=== PATIENT | female | born 1995 | race Caucasian/White ===

== ENCOUNTER → 2017-11-08 12:14 | Outpatient (CLI) | payer OTHER, SELFPAY ==
[2017-11-08 16:09] LABS: hCG Titer Quant., Serum < 1 mIU/mL (<9 non-preg)
== END ==
PROVIDERS: Family Provider Family Medicine; PCP Family Medicine; Visit Provider Obstetrics & Gynecology
DX: N92.5 Other specified irregular menstruation (principal)
CPT/HCPCS: 36415; 84702

== ENCOUNTER → 2017-12-19 07:43 | Outpatient (CLI) | payer OTHER, SELFPAY | PROVIDERS: Family Provider Family Medicine; PCP Family Medicine; Visit Provider Obstetrics & Gynecology | DX: Z53.9 Procedure and treatment not carried out, unspecified reason (principal) ==

== ENCOUNTER → 2017-12-20 09:55 | Outpatient (CLI) | payer OTHER, SELFPAY ==
[2017-12-20 12:38] LABS: Hematocrit 41.2 % (37-47); Hemoglobin 13.6 g/dl (12.0-15.0); Mean Corpuscular Hgb 29.1 pg (27.0-32.0); Mean Corpuscular Volume 88.2 fL (81-99); Mean Platelet Vol. 10.2 fl (6.2-12.0); Platelet Count 313 K/mm3 (150-450); RBC Distribution Width CV 13.4 % (11.6-14.6); Red Blood Count 4.67 M/mm3 (4.2-5.4); White Blood Count 8.3 K/mm3 (4.4-11.0)
[2017-12-20 12:40] LABS: Scan Indicated on CBC? Y/N NO
[2017-12-20 13:13] LABS: Hemoglobin A1c 5.2 % (4.2-6.3)
[2017-12-20 13:17] LABS: ALB/GLOB Ratio 0.9 RATIO (0.9-2.4); AST(SGOT) 26 U/L (15-37); Alanine Aminotransfer ALT/SGPT 33 U/L (13-56); Albumin, Serum 3.8 g/dL (3.2-5.0); Alkaline Phosphatase 101 U/L (45-117); Anion Gap 9 (5-15); BUN 9 mg/dL (7-18); BUN/Creat Ratio 10.7 RATIO (10-20); Chloride 103 mmol/L (98-107); Creatinine, Serum 0.84 mg/dL (0.55-1.02); EST Glomerular Filtration Rate 90 mL/min (>60); Est Glom Filt Rate - Afr Amer 109 mL/min (>60); Follicle Stimulating Hormone 6.1 mIU/mL; Free T3 3.5 pg/mL (2.18-3.98); Globulin 4.3 g/dL (2.2-4.2); Glucose 81 mg/dL (74-106); Potassium 4.1 mmol/L (3.5-5.1); Protein, Total 8.1 g/dL (6.4-8.2); Sodium Level 138 mmol/L (136-145); T4 Free Direct 1.02 ng/dL (0.76-1.46); Thyroid Stim Hormone (TSH) 1.86 uIU/mL (0.358-3.74)
[2017-12-21 06:08] LABS: DHEA Sulfate 155.9 ug/dL (110.0-431.7)
[2017-12-21 08:50] LABS: Progesterone Level 0.38 ng/mL (See Comment); Vitamin D,25 Hydroxy 43.4 ng/mL (29.95-100.01)
[2017-12-21 09:03] LABS: Cholesterol 159 mg/dL (200); High Density Lipoprotein 49 mg/dL; Triglycerides 142 mg/dL; Very Low Density Lipoprotein 28 mg/dL (5-40)
[2017-12-21 11:28] LABS: Sex Hormone-binding Globulin 105.7 nmol/L (24.6-122.0)
[2017-12-21 13:44] LABS: GGTP 22 U/L (5-55)
[2017-12-23 17:35] LABS: 17-Hydroxyprogesterone 36 ng/dL (.)
== END ==
PROVIDERS: Visit Provider Obstetrics & Gynecology
DX: N92.6 Irregular menstruation, unspecified (principal); R63.5 Abnormal weight gain
CPT/HCPCS: 36415; 80053; 80061; 82306; 82533; 82627; 82670; 82977; 83001; 83036; 83498; 84144; 84146; 84270; 84403; 84439; 84443; 84481; 85027; 82626

== ENCOUNTER → 2018-04-26 09:24 | Outpatient (CLI) | payer OTHER, SELFPAY ==
--- NOTE | 2018-04-26 | LES_PTH ---
PATIENT: MARIALUISA GREWAL LOC: [facility] U#:[id number] AGE/SX: 30/F ROOM: RE04/26/[address]: Dr. Gege Fallon MD : 1995 BED: DIS: SPEC #: [id number] RECD: 04/26/18 13:14 STATUS: SLOAN ARUNA #: [id number] RONAL: 04/26/18 00:[address]: Gege Fallon DEPT: SURGICAL PATHOLOGY RECD BY: Spenser Martinez ENTERED: 04/26/18 13:14 SP TYPE: Lesion OTHR DR: Dr. Robbin Perez, DO Tissues: Skin of arm Procedures: Surgery Specimen Level IV HEADER OPERATION: Punch biopsy PRE-OP DIAGNOSIS: Suspicious mole D22.9 TISSUE SUBMITTED: Left upper arm biopsy MICROSCOPIC DIAGNOSIS Left upper arm, biopsy: Compound dysplastic nevus, completely excised in the planes of sections examined. SJ:lizett 04/27/18 COMMENT Immunohistochemistry ([id number]) supports the above diagnosis. 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 Case has been reviewed in consultation with Dr. Conde who concurs with the above diagnosis. IDC:AM MICROSCOPIC DESCRIPTION Slides are reviewed. GROSS DESCRIPTION Received in fixative is one container labeled with the patient's name and designated left upper arm. The specimen consists of a round piece of pickett-white skin measuring 0.5 x 0.5 cm and up to 0.3 cm in thickness. The specimen is inked and submitted entirely in one cassette. It will be bisected at the time of embedding. / KYRA:lizett 04/26/18 TC:1 CPT: 02751
--- NOTE | 2018-04-26 | IMM_PTH ---
PATIENT: MARIALUISA GREWAL LOC: [facility] U#:[id number] AGE/SX: 30/F ROOM: RE04/26/[address]: Dr. Gege Fallon MD : 1995 BED: DIS: SPEC #: [id number] RECD: 04/27/18 12:21 STATUS: SLOAN REToya #: [id number] RONAL: 04/26/18 00:[address]: Gege Fallon DEPT: IMMUNOHISTOCHEMISTRY RECD BY: Anna Fortune ENTERED: 04/27/18 12:23 SP TYPE: IMMUNO OTHR DR: Dr. Robbin Perez DO Tissues: Skin of arm Procedures: [place]-1 (initial) CK5-6 (add) P40 (add) S-100 (add) PHYSICIAN & INSTITUTION [place] [phone] SPECIMEN INFORMATION: Tissue Source: Left upper arm punch biopsy Clinical Info: Suspicious mole Specimen Number: [id number] CPT code: 85955, 69304 x3 METHODOLOGY: Deparaffinized sections of prefer/formalin-fixed tissue or PAP/DQ stained slides are incubated with monoclonal/polyclonal antibodies/oligonucleotide probes. Localization is made via biotin free immunoperoxidase method. Appropriate controls are performed and reacted as expected. Results on target cell population are indicated in the following table: RESULTS: ANTIBODY / CLONE RESULT S-100 (4C4.9) positive MART-1 (A-103) positive CK5-6 (D5 & 1684) negative P40 (BC28) negative These tests were developed and their performance characteristics determined by [facility]. They may not have been cleared or approved by the U.S. Food and Drug Administration. The FDA has determined that such clearance or approval is not necessary. INTERPRETATION: Left upper arm, punch biopsy: Compound dysplastic nevus. SJ:lizett 04/27/18 Case has been reviewed in consultation with Dr. Conde who concurs with the above diagnosis. IDC:CANDI
== END ==
PROVIDERS: Family Provider Family Medicine; PCP Family Medicine; Visit Provider Family Medicine
DX: D22.62 Melanocytic nevi of left upper limb, including shoulder (principal)
CPT/HCPCS: 88305; 88341; 88342

== ENCOUNTER → 2018-07-19 07:58 | Outpatient (CLI) | payer OTHER, SELFPAY ==
[2018-07-19 12:40] LABS: T4 Free Direct 0.89 ng/dL (0.76-1.46); Thyroid Stim Hormone (TSH) 2.38 uIU/mL (0.358-3.74)
== END ==
PROVIDERS: Family Provider Family Medicine; PCP Family Medicine; Visit Provider Family Medicine
DX: E04.1 Nontoxic single thyroid nodule (principal)
CPT/HCPCS: 36415; 84439; 84443

== ENCOUNTER → 2018-07-24 14:06 | Outpatient (CLI) | payer OTHER, SELFPAY ==
--- NOTE | 2018-07-24 14:09 | US_ITS ---
STUDY: THYROID ULTRASOUND REASON FOR EXAM: Female, 23 years old. Left thyroid nodule. TECHNIQUE: Ultrasound evaluation of the thyroid was performed with real-time and static carmona-scale imaging. COMPARISON: None. FINDINGS: RIGHT LOBE: The right lobe of the thyroid gland measures 3.9 x 1.5 x 1.4 cm. There is a homogeneous echotexture. In the mid thyroid there is a 0.2 cm hypoechoic/anechoic focus there is no through transmission suggestive cystic nature, however, this may be secondary to the small size of the lesion. LEFT LOBE: The left lobe of the thyroid gland measures 4.1 x 1.7 x 1.4 cm. There is a homogeneous echotexture. In the mid thyroid there is a 0.6 x 0.3 x 0.4 cm cyst with a central echogenic focus. ISTHMUS: The isthmus measures 0.3 cm. The regional lymph nodes are normal. US/Thyroid IMPRESSION: Small bilateral thyroid nodules. The characteristics score and ACR TI -RADS classification of TR2, not suspicious. Electronically Signed: Kash Burton DO at 16:02 EST Tel [phone], Service support ,
== END ==
PROVIDERS: Family Provider Family Medicine; PCP Family Medicine; Referring Provider Family Medicine; Visit Provider Family Medicine
DX: N04.1 Nephrotic syndrome with focal and segmental glomerular lesions (principal)
CPT/HCPCS: 76536

== ENCOUNTER → 2018-07-25 12:38 | Outpatient (CLI) | payer OTHER, SELFPAY ==
[2018-07-25 13:50] LABS: hCG Titer Quant., Serum 144 mIU/mL (<9 non-preg)
[2018-07-27 12:22] LABS: hCG Titer Quant., Serum 296 mIU/mL (<9 non-preg)
--- OUTSIDE RECORDS SUMMARY | 2018-09-10 15:13 | XMS RPT_ITS ---
:1995 Author Organization OHIP Support Name Relationship Address Phone [facility] Unavailable [address] + [place] [address] ASHVINDAX/THOMAS,RIK Unavailable [address] + [place] [address] SHADBURN, DAX Unavailable Unavailable + [place] [address] [facility] Unavailable [address] + [place] [address] ASHVIN DAX/THOMAS,RIK Unavailable [address] + [place] [address] SHADBURN, DAX Unavailable Unavailable + [place] [address] [facility] Unavailable [address] + [place] [address] ASHVIN DAX/THOMAS,RIK Unavailable [address] + [place] [address] SHADBURN, DAX Unavailable Unavailable + [place] [address] [facility] Unavailable [address] + [place] [address] ASHVIN, DAX/THOMAS,RIK Unavailable [address] + [place] [address] SHADBURN, DAX Unavailable Unavailable + [place] [address] [facility] Unavailable [address] + [place] [address] ASHVIN DAX/THOMAS,RIK Unavailable [address] + [place] [address] SHADBURN, DAX Unavailable 0 + [place] [address] [facility] Unavailable [address] + [place] [address] DAX LOCK/LEROY THOMASON Unavailable [address] + [place] [address] BRANDANDBMICHAEL, DAX Unavailable 0 + [place] [address] [facility] Unavailable [address] + [place] [address] DAX LOCK/THOMAS,RIK Unavailable [address] + [place] [address] BRANDANDBMICHAEL, DAX Unavailable 0 + [place] [address] [facility] Unavailable [address] + [place] [address] DAX LOCK/THOMAS,RIK Unavailable [address] + [place] [address] BRANDANDBMICHAEL, DAX Unavailable 0 + [place] [address] [facility] Unavailable [address] + [place] [address] DAX LOCK/THOMAS,RIK Unavailable [address] + [place] [address] GAGE, DAX Unavailable 0 + [place] [address] Care Team Providers Name Role Phone Maricruz Posada Attending Unavailable Robbin Perez Attending Unavailable Robbin Perez Primary Care Unavailable Robbin Perez Attending Unavailable Robbin Perez Referring Unavailable Robbin Perez Primary Care Unavailable Gege Fallon Attending Unavailable Robbin Perez Primary Care Unavailable Maricruz Posada Attending Unavailable Jazmin Peace Attending Unavailable Robbin Perez Primary Care Unavailable Maricruz Posada Attending Unavailable Maricruz Posada Attending Unavailable Maricruz Posada Referring Unavailable Maricruz Posada Attending Unavailable Robbin Perez Primary Care Unavailable PROBLEMS PROBLEMS DATE TYPE CONDITION / CODE ATTENDING STATUS SOURCE 08/21/2018 Unknown Z12.4 - Encounter Albino Active [place] for screening for [facility] malignant neoplasm Hospital of cervix / Repository Z12.4(ICD-10) 08/21/2018 Unknown Z11.3 - Encounter Albino Active [place] for screening for [facility] infections with a Hospital predominantly Repository sexual mode of transmission / Z11.3(ICD-10) 07/27/2018 Unknown Z34.81 - Encounter Albino Active [place] for supervision of [facility] other normal Hospital , first Repository trimester / Z34.81(ICD-10) 07/19/2018 Unknown 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 / Hospital E04.1(ICD-10) Repository 11/08/2017 Unknown N92.5 - Other Jazmin Peace Active [place] specified irregular [facility] menstruation / Hospital N92.5(ICD-10) Repository PROCEDURES PROCEDURES No Procedure Records FoundRESULTS RESULTS CT/NG W[facility] BY PCR Collected: 08/21/2018 Status: F Source: [place] 1:30 PM [facility] REPOSITORY TYPE CODE TESTS RESULT OUT OF RANGE REFERENCE UNITS LAB L8200.2100 Negative Normal Chlam Negative Trac PCR LAB L8200.2200 Negative Normal NG by Negative PCR Performed By: #### L8200.2000 #### [facility] [address] [place], [address] PAP I-G W/RFX Collected: 08/21/2018 Status: F Source: [place] HRHPV-APTIMA 1:30 PM [facility] REPOSITORY Order Comment: CYTOLOGY INFORMATION: - CLINICAL INFORMATION: - DATE LMP/MENOPAUSE: 06/26/18 LMP - COLLECTION VIAL: Thin Prep Vial - PROFESSIONAL SERVICES CONSULTANT SOURCE: CERVICAL/ENDOCERVICAL - COLLECTION TECHNIQUE: BRUSH/SPATULA Specimen Comment: [id number] Specimen Comment: Source.............Endocervix Specimen Comment: LMP / Prev Treat...PMX=[id number] Specimen Comment: No. of containers..01 ThinPrep Vial TYPE CODE TESTS RESULT OUT OF RANGE REFERENCE UNITS LAB L7400.0800 . Normal DIAGN Comment Result Comment: NEGATIVE FOR INTRAEPITHELIAL LESION AND MALIGNANCY. PREDOMINANCE OF COCCOBACILLI CONSISTENT WITH SHIFT IN VAGINAL LAUREL IS PRESENT. LAB L7400.0900 . Normal ADEQ Comment Result Comment: Satisfactory for evaluation. Endocervical and/or squamous metaplastic cells (endocervical component) are present. LAB L7400.1400 . Normal PERFORM Comment Result Comment: Faith Talbert, Pad Extractor Tender (ASCP) LAB L7400.2575 . Normal TEST METHOD Comment Result Comment: This liquid based ThinPrep(R) pap test was screened with the use of an image guided system. LAB L7400.2600 . Normal . COMM LAB L7400.2700 . Normal PAPSMR Comment Result Comment: The Pap smear is a screening test designed to aid in the detection of premalignant and malignant conditions of the uterine cervix. It is not a diagnostic procedure and should not be used as the sole means of detecting cervical cancer. Both false-positive and false-negative reports do occur. LAB L7400.2800 . Normal HPV RFLX Comment Result Comment: The HPV DNA reflex criteria were not met with this specimen result therefore, no HPV testing was performed. Performed at: [facility] [address] [id number] Chainstitch Felled Seam Operator: Radha Knowles MD, Phone: [phone] Performed By: #### L7400.0353 #### [facility] (refer to report for specific site) refer to report for address and phone number HCG TITER QUANT., Collected: 07/29/2018 Status: F Source: [place] SERUM 10:44 AM [facility] REPOSITORY TYPE CODE TESTS RESULT OUT OF RANGE REFERENCE UNITS LAB L700.8000 <9 non-preg mIU/mL High HCG 632 QUANT. Performed By: #### L700.8000 #### [facility] [address] [place], [place], [id number] HCG TITER QUANT., Collected: 07/27/2018 Status: F Source: [place] SERUM 9:14 AM [facility] REPOSITORY TYPE CODE TESTS RESULT OUT OF RANGE REFERENCE UNITS LAB L700.8000 <9 non-preg mIU/mL High HCG 296 QUANT. Performed By: #### L700.8000 #### [facility] [address] [place], [place], [id number] HCG TITER QUANT., Collected: 07/25/2018 Status: F Source: [place] SERUM 12:39 PM [facility] REPOSITORY TYPE CODE TESTS RESULT OUT OF RANGE REFERENCE UNITS LAB L700.8000 <9 non-preg mIU/mL High HCG 144 QUANT. Performed By: #### L700.8000 #### [facility] [address] [place], [address] THYROID Observed: 07/24/2018 Status: F Source: [place] 2:09 PM [facility] REPOSITORY [facility] Imaging Services [address] [place] [address] Thyroid MR#: [id number] Acct: [id number] Name: SANGEETHA THOMAS Rep #: [id number] : 1995 F 23 From: Kash Burton DO PCP: Robbin Perez DO Status: REG CLI Study: Thyroid Date of Exam: 07/24/18 Exam# [id number] Ordering Dr: Robbin Perez DO STUDY: THYROID ULTRASOUND REASON FOR EXAM: Female, 23 years old. Left thyroid nodule. TECHNIQUE: Ultrasound evaluation of the thyroid was performed with real-time and static thomas-scale imaging. COMPARISON: None. FINDINGS: RIGHT LOBE: The right lobe of the thyroid gland measures 3.9 x 1.5 x 1.4 cm. There is a homogeneous echotexture. In the mid thyroid there is a 0.2 cm hypoechoic/anechoic focus there is no through transmission suggestive cystic nature, however, this may be secondary to the small size of the lesion. LEFT LOBE: The left lobe of the thyroid gland measures 4.1 x 1.7 x 1.4 cm. There is a homogeneous echotexture. In the mid thyroid there is a 0.6 x 0.3 x 0.4 cm cyst with a central echogenic focus. ISTHMUS: The isthmus measures 0.3 cm. The regional lymph nodes are normal. US/Thyroid IMPRESSION: Small bilateral thyroid nodules. The characteristics score and ACR TI -RADS classification of TR2, not suspicious. 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 [place], [place], [address] T4 FREE DIRECT Collected: 07/19/2018 Status: F Source: [place] 8:03 AM [facility] REPOSITORY TYPE CODE TESTS RESULT OUT OF RANGE REFERENCE UNITS LAB L506.0400 0.76-1.46 ng/dL Normal T4 FREE 0.89 DIRECT Performed By: #### L501.9520, L506.0400 #### [facility] [address] [place], [address] LESION (CHOOSE SITE) Observed: 04/26/2018 Status: F Source: [place] 12:00 AM [facility] REPOSITORY Patient: SANGEETHA THOMAS : 1995 () Acct Num: [id number] Phys: Gege Fallon MD Unit Num: [id number] Loc: [facility] Specimen: [id number] Received: 04/26/181313 Spec Type: Lesion TISSUES TISSUES: Skin of arm COMMENT Immunohistochemistry ([id number]) supports the above diagnosis. 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 Case has been reviewed in consultation with Dr. Conde who concurs with the above diagnosis. IDC:AM GROSS DESCRIPTION Received in fixative is one container labeled with the patient's name and designated left upper arm. The specimen consists of a round piece of pickett- white skin measuring 0.5 x 0.5 cm and up to 0.3 cm in thickness. The specimen is inked and submitted entirely in one cassette. It will be bisected at the time of embedding. / KYRA:lizett 04/26/18 TC:1 CPT: 11898 HEADER OPERATION: Punch biopsy PRE-OP DIAGNOSIS: Suspicious mole D22.9 TISSUE SUBMITTED: Left upper arm biopsy MICROSCOPIC DESCRIPTION Slides are reviewed. MICROSCOPIC DIAGNOSIS Left upper arm, biopsy: Compound dysplastic nevus, completely excised in the planes of sections examined. SJ:lizett 04/27/18 Signed Oli Umaña 04/28/18 <signature on file> Performed By: #### PLES #### [facility] [address] [place], [address] IMMUNOHISTOCHEMISTRY Observed: 04/26/2018 Status: F Source: [place] 12:00 AM [facility] REPOSITORY Patient: SANGEETHA THOMAS : 1995 (/) Acct Num: [id number] Phys: Gege Fallon MD Unit Num: [id number] Loc: [facility] Specimen: [id number] Received: 04/27/18 - 1221 Spec Type: IMMUNO TISSUES TISSUES: Skin of arm SPECIMEN INFORMATION: Tissue Source: Left upper arm punch biopsy Clinical Info: Suspicious mole Specimen Number: [id number] CPT code: 09584, 75277 x3 METHODOLOGY: Deparaffinized sections of prefer/formalin-fixed tissue or PAP/DQ stained slides are incubated with monoclonal/polyclonal antibodies/oligonucleotide probes. Localization is made via biotin free immunoperoxidase method. Appropriate controls are performed and reacted as expected. Results on target cell population are indicated in the following table: RESULTS: ANTIBODY / CLONE RESULT S-100 (4C4.9) positive MART-1 (A-103) positive CK5-6 (D5 AND 1684) negative P40 (BC28) negative These tests were developed and their performance characteristics determined by [facility]. They may not have been cleared or approved by the U.S. Food and Drug Administration. The FDA has determined that such clearance or approval is not necessary. INTERPRETATION: Left upper arm, punch biopsy: Compound dysplastic nevus. SJ:lizett 04/27/18 Case has been reviewed in consultation with Dr. Conde who concurs with the above diagnosis. IDC:AM [facility]YS[facility] INSTIT[facility] [address] [address] Signed Oli Davisin 04/28/18 <signature on file> Performed By: #### PIMM #### [facility] [address] [place] [address]. [place], [place], [address] CBC-COMPLETE BLOOD CNT Collected: 12/20/2017 Status: F Source: [place] NO DIFF 9:56 [facility] REPOSITORY TYPE CODE TESTS RESULT OUT OF RANGE REFERENCE UNITS LAB L100.1000 4.4-11.0 K/mm3 Normal WBC 8.3 LAB L100.1200 4.2-5.4 M/mm3 Normal RBC 4.67 LAB L100.1300 12.0-15.0 g/dl Normal HGB 13.6 LAB L100.1400 37-47 % Normal HCT 41.2 LAB L100.1500 81-99 fL Normal MCV 88.2 LAB L100.1600 27.0-32.0 pg Normal MCH 29.1 LAB L100.1700 32-36 g/gl Normal MCHC 33.0 LAB L100.1810 11.6-14.6 % Normal RDW CV 13.4 LAB L100.1820 35.1-43.9 fl Normal RDW SD 43.0 LAB L100.1900 150-450 K/mm3 Normal PLT 313 LAB L100.2000 6.2-12.0 fl Normal MPV 10.2 Performed By: #### L100.0500 #### [facility] [address] [place], [place] [address]. [place], [place], [address] HEMOGLOBIN A1C Collected: 12/20/2017 Status: F Source: [place] 9:56 [facility] REPOSITORY TYPE CODE TESTS RESULT OUT OF RANGE REFERENCE UNITS LAB L501.9985 4.2-6.3 % Normal HGB A1C 5.2 Performed By: #### L501.9985 #### [facility] [address] [place], [place], [address] COMPREHENSIVE METABOLIC Collected: 12/20/2017 Status: F Source: [place] MARCUS 9:56 AM [facility] REPOSITORY Order Comment: PLEASE ADD GGT TO BLOOD FROM 12/20/17. RACK TG2 6 M, TG3 5 N, TG3 6 G, WG3 1 B. SPECIMEN WAS SPUN WITH IN 20 MINUTES OF DRAW. CSTROCK PLEASE ADD LIPID TO BLOOD FROM 12-20-17 TYPE CODE TESTS RESULT OUT OF RANGE REFERENCE UNITS LAB L501.0100 74-106 mg/dL Normal GLU 81 Result Comment: Please note revised GLUCOSE reference range effective 2017. LAB L501.1000 7-18 mg/dL Normal BUN 9 LAB L501.1100 0.55-1.02 mg/dL Normal CREAT,SERUM 0.84 Result Comment: The validity of the calculated GFR AND GFRAA in patients over 70 years has not been determined. Clinical correlation is essential. LAB L501.1110 >60 mL/min Normal EST GFR 90 Result Comment: Non- GFR Calc LAB L501.1115 >60 mL/min Normal EST GFR - AA 109 Result Comment: GFR Calc LAB L501.1300 10-20 RATIO Normal BUN/CRE 10.7 LAB L501.1500 6.4-8.2 g/dL T Normal PROT 8.1 LAB L501.1800 3.2-5.0 g/dL Normal ALB 3.8 LAB L501.1950 2.2-4.2 g/dL High GLOB 4.3 LAB L501.2000 0.9-2.4 RATIO Normal A/G 0.9 LAB L501.2200 8.5-10.1 mg/dL CA Normal 9.0 LAB L501.4100 15-37 U/L Normal AST 26 LAB L501.4305 45-117 U/L Normal ALK P 101 LAB L501.4405 13-56 U/L Normal ALT 33 LAB L501.4600 0.20-1.00 mg/dL T Normal BILI 0.50 LAB L501.5300 136-145 mmol/L NA Normal 138 LAB L501.5600 3.5-5.1 mmol/L K Normal 4.1 LAB L501.5900 98-107 mmol/L CL Normal 103 LAB L501.6100 21.0-32.0 mmol/L Normal CO2 26.0 LAB L501.6200 5-15 Normal GAP 9 Performed By: #### L500.4050, L501.51943, L501.9520, L506.0400, L3100.5125, L3100.5420, L3300.1750, L500.4100, L501.5100 #### [facility] [address] [place], [place], [address] FREE T3 Collected: 12/20/2017 Status: F Source: [place] 9:56 AM [facility] REPOSITORY Order Comment: PLEASE ADD GGT TO BLOOD FROM 12/20/17. RACK TG2 6 M, TG3 5 N, TG3 6 G, WG3 1 B. SPECIMEN WAS SPUN WITH IN 20 MINUTES OF DRAW. CSTROCK PLEASE ADD LIPID TO BLOOD FROM 12-20-17 TYPE CODE TESTS RESULT OUT OF RANGE REFERENCE UNITS LAB L501.64448 2.18-3.98 pg/mL Normal FREE T3 3.5 Performed By: #### L500.4050, L501.56617, L501.9520, L506.0400, L3100.5125, L3100.5420, L3300.1750, L500.4100, L501.5100 #### [facility] [address] [place], [place], [address] THYROID STIM HORMONE Collected: 12/20/2017 Status: F Source: [place] (TSH) 9:56 AM [facility] REPOSITORY Order Comment: PLEASE ADD GGT TO BLOOD FROM 12/20/17. RACK TG2 6 M, TG3 5 N, TG3 6 G, WG3 1 B. SPECIMEN WAS SPUN WITH IN 20 MINUTES OF DRAW. CSTROCK PLEASE ADD LIPID TO BLOOD FROM 12-20-17 TYPE CODE TESTS RESULT OUT OF RANGE REFERENCE UNITS LAB L501.9520 0.358-3.74 uIU/mL Normal TSH 1.86 Performed By: #### L500.4050, L501.48859, L501.9520, L506.0400, L3100.5125, L3100.5420, L3300.1750, L500.4100, L501.5100 #### [facility] [address] [place], [address] T4 FREE DIRECT Collected: 12/20/2017 Status: F Source: [place] 9:56 AM [facility] REPOSITORY Order Comment: PLEASE ADD GGT TO BLOOD FROM 12/20/17. RACK TG2 6 M, TG3 5 N, TG3 6 G, WG3 1 B. SPECIMEN WAS SPUN WITH IN 20 MINUTES OF DRAW. CSTROCK PLEASE ADD LIPID TO BLOOD FROM 12-20-17 TYPE CODE TESTS RESULT OUT OF RANGE REFERENCE UNITS LAB L506.0400 0.76-1.46 ng/dL Normal T4 FREE 1.02 DIRECT Performed By: #### L500.4050, L501.66463, L501.9520, L506.0400, L3100.5125, L3100.5420, L3300.1750, L500.4100, L501.5100 #### [facility] [address] [place], [place], [address] FOLLICLE STIMULATING Collected: 12/20/2017 Status: F Source: [place] HORMONE 9:56 AM [facility] REPOSITORY Order Comment: PLEASE ADD GGT TO BLOOD FROM 12/20/17. RACK TG2 6 M, TG3 5 N, TG3 6 G, WG3 1 B. SPECIMEN WAS SPUN WITH IN 20 MINUTES OF DRAW. CSTROCK PLEASE ADD LIPID TO BLOOD FROM 12-20-17 TYPE CODE TESTS RESULT OUT OF RANGE REFERENCE UNITS LAB L3100.5125 mIU/mL Normal FSH 6.1 Result Comment: NORMAL REFERENCE RANGES FEMALE FOLLICULAR 2.3 - 12.6 mIU/mL MID-CYCLE PEAK 5.2 - 17.5 mIU/mL LUTEAL 1.7 - 12.9 mIU/mL POST-MENOPAUSAL ON MHT 5.9 - 72.8 mIU/mL NOT ON MHT 12.7 - 132.2 mlU/mL MALE 0.7 - 10.8 mIU/mL NEW TEST METHOD AND REFERENCE RANGES JANUARY 03, 2012 Performed By: #### L500.4050, L501.89337, L501.9520, L506.0400, L3100.5125, L3100.5420, L3300.1750, L500.4100, L501.5100 #### [facility] [address] [place], [address] PROLACTIN Collected: 12/20/2017 Status: F Source: [place] 9:56 AM [facility] REPOSITORY Order Comment: PLEASE ADD GGT TO BLOOD FROM 12/20/17. RACK TG2 6 M, TG3 5 N, TG3 6 G, WG3 1 B. SPECIMEN WAS SPUN WITH IN 20 MINUTES OF DRAW. CSTROCK PLEASE ADD LIPID TO BLOOD FROM 12-20-17 TYPE CODE TESTS RESULT OUT OF RANGE REFERENCE UNITS LAB L3100.5420 ng/mL Normal PROLACTIN 11.0 Result Comment: NORMAL REFERENCE RANGES FEMALE NON- 2.2 - 30.3 ng/mL 8.1 - 347.6 ng/mL POST-MENOPAUSAL 0.7 - 31.5 ng/mL MALE 2.5 - 17.4 ng/mL NEW TEST METHOD AND REFERENCE RANGES JANUARY 03, 2012 Performed By: #### L500.4050, L501.30558, L501.9520, L506.0400, L3100.5125, L3100.5420, L3300.1750, L500.4100, L501.5100 #### [facility] [address] [place], [address] ESTRADIOL Collected: 12/20/2017 Status: F Source: [place] 9:56 AM [facility] REPOSITORY Order Comment: PLEASE ADD GGT TO BLOOD FROM 12/20/17. RACK TG2 6 M, TG3 5 N, TG3 6 G, WG3 1 B. SPECIMEN WAS SPUN WITH IN 20 MINUTES OF DRAW. CSTROCK PLEASE ADD LIPID TO BLOOD FROM 12-20-17 TYPE CODE TESTS RESULT OUT OF RANGE REFERENCE UNITS LAB L3300.1750 pg/mL Normal ESTRADIOL 42.0 Result Comment: NORMAL REFERENCE RANGES FEMALE FOLLICULAR 21.4 - 164.8 pg/mL MID-CYCLE PEAK 49.9 - 367.2 pg/mL LUTEAL 40.2 - 259.0 pg/mL POST-MENOPAUSAL ON MHT <11.0 - 462.1 pg/mL NOT ON MHT <11.0 - 58.3 pg/mL MALE <11.0 - 52.5 pg/mL NOTE: [facility] HAS CONFIRMED THE DRUG FULVETRANT (FASLODEX) MAY CAUSE FALSELY ELEVATED ESTRADIOL RESULTS WHEN USING THIS TEST METHOD. IF PATIENT IS TAKING FULVESTRANT AN ALTERNATIVE METHOD SHOULD BE USED TO DETERMINE ESTRADIOL CONCENTRATION. Performed By: #### L500.4050, L501.85536, L501.9520, L506.0400, L3100.5125, L3100.5420, L3300.1750, L500.4100, L501.5100 #### [facility] [address] [place], [address] LIPID PROFILE Collected: 12/20/2017 Status: F Source: [place] 9:56 AM [facility] REPOSITORY Order Comment: PLEASE ADD GGT TO BLOOD FROM 12/20/17. RACK TG2 6 M, TG3 5 N, TG3 6 G, WG3 1 B. SPECIMEN WAS SPUN WITH IN 20 MINUTES OF DRAW. CSTROCK PLEASE ADD LIPID TO BLOOD FROM 12-20-17 TYPE CODE TESTS RESULT OUT OF RANGE REFERENCE UNITS LAB L501.4900 200 mg/dL Normal CHOL 159 Result Comment: <200 mg/dL Desirable 200-240 mg/dL Borderline >240 mg/dL High Risk LAB L501.5000 mg/dL Normal TRIG 142 Result Comment: The drugs N-Acetylcysteine and Metamizole may falsely depress this assay. Serum Triglycerides Reference Interval Normal <150 mg/dL Borderline high 150 - 199 mg/dL High 200 - 499 mg/dL Very High > or = 500 mg/dL LAB L501.6400 mg/dL Normal HDL 49 Result Comment: The drugs N-Acetylcysteine and Metamizole may falsely depress this assay. Reference Range HDL <40 mg/dL Low HDL Cholesterol HDL >or= 60 mg/dL High HDL Cholesterol LAB L501.6500 0-130 mg/dL Normal LDL 82 LAB L501.6600 5-40 mg/dL Normal VLDL 28 Performed By: #### L500.4050, L501.95371, L501.9520, L506.0400, L3100.5125, L3100.5420, L3300.1750, L500.4100, L501.5100 #### [facility] [address] [place], [address] GGTP Collected: 12/20/2017 Status: F Source: [place] 9:56 AM [facility] REPOSITORY Order Comment: PLEASE ADD GGT TO BLOOD FROM 12/20/17. RACK TG2 6 M, TG3 5 N, TG3 6 G, WG3 1 B. SPECIMEN WAS SPUN WITH IN 20 MINUTES OF DRAW. CSTROCK PLEASE ADD LIPID TO BLOOD FROM 12-20-17 TYPE CODE TESTS RESULT OUT OF RANGE REFERENCE UNITS LAB L501.5100 5-55 U/L Normal GGTP 22 Performed By: #### L500.4050, L501.61768, L501.9520, L506.0400, L3100.5125, L3100.5420, L3300.1750, L500.4100, L501.5100 #### [facility] [address] [place], [address] VITAMIN D,25 HYDROXY Collected: 12/20/2017 Status: F Source: [place] 9:56 AM [facility] REPOSITORY TYPE CODE TESTS RESULT OUT OF RANGE REFERENCE UNITS LAB L506.1000 29.95-100.01 ng/mL Normal Vitamin D 43.4 25-OH Result Comment: Vitamin D 25(OH) Status Range Deficiency <20 ng/mL (50nmol/L) Insuffciency 20 - 30 ng/mL (50 - 75 nmol/L) Sufficiency 30 - 100 ng/mL (75 - 250 nmol/L) Toxicity >100 ng/mL (>250 nmol/L) Performed By: #### L506.1000, L509.3000, L509.4001, L509.6000 #### [facility] [address] [place], [address] TESTOSTERONE, SERUM TOTAL Collected: 12/20/2017 Status: F Source: [place] 9:56 AM [facility] REPOSITORY TYPE CODE TESTS RESULT OUT OF REFERENCE UNITS RANGE LAB L509.3000 ng/dL Testosterone Normal 31.23 Result Comment: NORMAL REFERENCE RANGES MALE AGE <50 123.06 - 813.86 ng/dL MALE AGE >50 89.98 - 780.10 ng/dL FEMALE PREMENOPAUSE AGE 21 - 60 9.01 - 47.94 ng/dL FEMALE POSTMENOPAUSE AGE 45 - 89 <7.00 - 45.62 ng/dL REFERENCE RANGE AND METHODOLOGY CHANGED 08/03/2017 Performed By: #### L506.1000, L509.3000, L509.4001, L509.6000 #### [facility] [address] [place], [address] PROGESTERONE LEVEL Collected: 12/20/2017 Status: F Source: [place] 9:56 AM [facility] REPOSITORY TYPE CODE TESTS RESULT OUT OF REFERENCE UNITS RANGE LAB L509.4001 See Comment ng/mL Progesterone Normal 0.38 Result Comment: Progesterone Reference Table: UNITS Female: Follicular 0.15 - 1.40 ng/mL Luteal 3.34 - 25.56 ng/mL Mid-luteal 4.44 - 28.03 ng/mL Postmenopausal 0.0 - 0.73 ng/mL : 1st Trimester 11.22 - 90.00 ng/mL 2nd Trimester 25.55 - 89.40 ng/mL 3rd Trimester 48.40 -422.50 ng/mL Performed By: #### L506.1000, L509.3000, L509.4001, L509.6000 #### [facility] [address] [place], [address] CORTISOL SERUM Collected: 12/20/2017 Status: F Source: [place] 9:56 AM [facility] REPOSITORY TYPE CODE TESTS RESULT OUT OF RANGE REFERENCE UNITS LAB L509.6000 3.09-22.40 ug/dL Normal CORTISOL 7.40 Result Comment: Adult (AM) 4.30 - 22.40 ug/dL Adult (PM) 3.09 - 16.66 ug/dL Performed By: #### L506.1000, L509.3000, L509.4001, L509.6000 #### [facility] [facility] [address] [place], [address] SEX HORMONE-BINDING Collected: 12/20/2017 Status: F Source: SAMUEL GLOBULIN 9:56 AM [facility] REPOSITORY Order Comment: Has Patient had Radioactive Injection for X-ray?: N TYPE CODE TESTS RESULT OUT OF RANGE REFERENCE UNITS LAB L3100.5060 24.6-122.0 nmol/L Normal SHBG 105.7 Result Comment: Performed at: [address] [id number] [employer] Operator: Matthew Powell PhD, Phone: [phone] Performed By: #### L3100.5060, L3300.1500 #### [facility] (refer to report for specific site) refer to report for address and phone number DHEA SULFATE Collected: 12/20/2017 Status: F Source: SAMUEL 9:56 AM [facility] REPOSITORY Order Comment: Has Patient had Radioactive Injection for X-ray?: N TYPE CODE TESTS RESULT OUT OF RANGE REFERENCE UNITS LAB L3300.1500 110.0-431.7 ug/dL Normal DHEA SULF 155.9 4020 Performed By: #### L3100.5060, L3300.1500 #### [facility] (refer to report for specific site) refer to report for address and phone number [phone] Collected: Status: F Source: SAMUEL 12/20/2017 9:56 AM [facility] REPOSITORY Order Comment: Has Patient had Radioactive Injection for X-ray?: N TYPE CODE TESTS RESULT OUT OF RANGE REFERENCE UNITS LAB L3100.9000 . ng/dL Normal HYDROXPROG 17 36 Result Comment: Adult Female Follicular 15 - 70 Luteal 35 - 290 This test was developed and its performance characteristics determined by [facility]. It has not been cleared or approved by the Food and Drug Administration. Performed at: [address] [id number] [employer] Operator: Edmond Kwong MD, Phone: [phone] Performed By: #### L3100.9000 #### [facility] (refer to report for specific site) refer to report for address and phone number HCG TITER QUANT., Collected: 11/08/2017 Status: F Source: SAMUEL SERUM 12:21 PM [facility] REPOSITORY TYPE CODE TESTS RESULT OUT OF RANGE REFERENCE UNITS LAB L700.8000 <9 non-preg mIU/mL Normal HCG < 1 QUANT. Performed By: #### L700.8000 #### [facility] Moser[facility] [place], [place], [id number] ALLERGIES ALLERGIES DATE TYPE / CODE NAME / CODE REACTION SEVERITY SOURCE 12/15/2015 Drug No Known Unknown [facility] Allergy/4160 Allergies/F00 Hospital 52492(SNOMED 2828649(RXNOR Repository CT) M) ENCOUNTERS ENCOUNTERS ADMIT/DISCHARGE ACCOUNT ADMITTING ENCOUNTER LOCATION SOURCE NUMBER CLASS 08/21/2018 [id number] Ambulatory Samuel Samuel 8 [facility] ing:LABSPEC Repository 07/29/2018 [id number] Ambulatory Samuel Samuel 8 [facility] ing:LAB Repository 07/25/2018 [id number] [place] [facility] ing:LAB.FUTUR Repository E 07/24/2018 [id number] Ambulatory [place] 1 [facility] ing:US Repository 07/19/2018 [id number] Ambulatory [place] Samuel 9 [facility] ing:BFHLAB Repository 04/26/2018 [id number] Ambulatory [place] Samuel 2 [facility] ing:BFHLAB Repository 12/20/2017 [id number] Ambulatory [place] Samuel 2 [facility] ing:WOBLAB Repository 12/19/2017 [id number] Ambulatory [place] 1 [facility] ing:LAB.FUTUR Repository E 11/08/2017 [id number] Ambulatory [place] Samuel 4 [facility] ing:LAB.FUTUR Repository E PAYERS PAYERS ENCOUNTER GUARANTOR PAYER SUBSCRIBER SOURCE 08/21/2018 SANGEETHA Rosales Primary Insurance:[facility] DAX Freire NALDOB: Samuel [id number] [facility] [id number] Number: Repository [id number]: [phone] [id number] [phone] () Date:7371-86-61DP [address] [address]NX[place], [place] [address]ET: CHECK WEBSITE 08/21/2018 Secondary NOT GIVENUNK [place] Insurance:SELF PAY [facility] Number: Effective Repository Date:2018-08-21 07/29/2018 SANGEETHA Rosales Primary Insurance:[facility] DAX Freire NALDOB: Samuel [id number] [facility] [id number] [place], [place] Number: Repository [id number]: 330 [id number] [phone] () Date:3492-89-04MU [address] [address], [place] [address]GX: CHECK WEBSITE 07/29/2018 Secondary NOT GIVENUNK Samuel Insurance:SELF PAY [facility] Number: Effective Repository Date:2018-07-29 07/25/2018 SANGEETHA Rosales Primary Insurance:[facility] DAX HITCHCOCKB: Samuel [id number] [facility] [id number], [place] Number: Repository [id number]: 330 [id number] [phone] () Date:1966-89-25OH [address] [address], [place] [address]VB: CHECK WEBSITE 07/25/2018 Secondary NOT GIVENUNK Samuel Insurance:SELF PAY [facility] Number: Effective Repository Date:2018-07-25 07/24/2018 SANGEETHA Rosales Primary Insurance:[facility] DAX HITCHCOCKB: Samuel [id number] [facility] [id number], [place] Number: Repository [id number]: 330 [id number] [phone] () Date:9902-07-46OI [address] [address]ZZQRZCONQ, [place] [address]DD: CHECK WEBSITE 07/24/2018 Secondary NOT GIVENUNK Samuel Insurance:SELF PAY [facility] Number: Effective Repository Date:2018-07-19 07/19/2018 Sangeetha Rosales Primary Insurance:[facility] DAX HITCHCOCKB: Samuel Garcia [facility] [id number] Number: Repository [id number]: 330 [id number] [phone] () Date:7934-14-99QX [address] [address]EC, [place] [address]QE: CHECK WEBSITE 07/19/2018 Secondary NOT GIVENUNK [place] Insurance:SELF PAY [facility] Number: Effective Repository Date:2018-07-19 04/26/2018 Sangeetha Rosales Primary Insurance:[facility] DAX LOCKDOB: Samuel [id number] [facility] [id number], [place] Number: Repository [id number]: 330 [id number] [phone] (HP) Date:3046-51-47GO [address] [address]IABCUZRSW, [place] [address]MF: CHECK WEBSITE 04/26/2018 Secondary NOT GIVENUNK Samuel Insurance:SELF PAY [facility] Number: Effective Repository Date:2018-04-26 12/20/2017 Sangeetha Rosales Primary Insurance:[facility] DAX HITCHCOCKB: Samuel Dunn [facility] [id number] [address]Qbx: Number: Repository [id number] (HP) Date:4446-36-60WM [address] [address]PA[place], [place] [address]LD: CHECK WEBSITE 12/20/2017 Secondary NOT GIVENUNK Samuel Insurance:SELF PAY [facility] Number: Effective Repository Date:2017-12-20 12/19/2017 Sangeetha Rosales Primary Insurance:[facility] DAX HITCHCOCKB: Samuel Dunn [facility] [id number] Hospital-St[facility] Joseph[facility] [address]Yvz: Number: Repository [id number] (HP) Date:7490-97-13WQ [address] [address]HGQFUYDHE, [place] [address]RP: CHECK WEBSITE 12/19/2017 Secondary NOT GIVENUNK [place] Insurance:SELF PAY [facility] Number: Effective Repository Date:2017-11-24 11/08/2017 Sangeetha Rosales Primary Insurance:[facility] DAX HITCHCOCKB: Samuel Dunn [facility] [id number] Hospital-St. Joseph's [address]Rai: Number: Repository [id number] (HP) Date:6763-20-74YH [address] [address]LRFPGTMKV, [place] [address]GO: CHECK WEBSITE 11/08/2017 Secondary NOT GIVENUNK Samuel Insurance:[facility]LF PAY [facility] Number: Effective Repository Date:2017-11-08
== END ==
PROVIDERS: Visit Provider Obstetrics & Gynecology
DX: Z34.81 Encounter for supervision of other normal pregnancy, first trimester (principal)
CPT/HCPCS: 36415; 84702

== ENCOUNTER → 2018-07-29 10:29 | Outpatient (CLI) | payer OTHER, SELFPAY ==
[2018-07-29 12:00] LABS: hCG Titer Quant., Serum 632 mIU/mL (<9 non-preg)
--- OUTSIDE RECORDS SUMMARY | 2018-11-01 09:48 | XMS RPT_ITS ---
:1995 Author Organization OHIP Support Name Relationship Address Phone [facility] Unavailable [address] + [place] [address] ASHVINDAX/THOMAS,RIK Unavailable [address] + [place] [address] SHADBURN, DAX Unavailable Unavailable + [place] [address] [facility] Unavailable [address] + [place] [address] ASHVIN DAX/THOMAS,RIK Unavailable [address] + [place] [address] SHADBURN, DAX Unavailable Unavailable + [place] [address] [facility] Unavailable [address] + [place] [address] ASHVIN DAX/THOMAS,RIK Unavailable [address] + [place] [address] SHADBURN, DAX Unavailable Unavailable + [place] [address] [facility] Unavailable [address] + [place] [address] ASHVIN, DAX/THOMAS,RIK Unavailable [address] + [place] [address] SHADBURN, DAX Unavailable Unavailable + [place] [address] [facility] Unavailable [address] + [place] [address] ASHVIN DAX/THOMAS,RIK Unavailable [address] + [place] [address] SHADBURN, DAX Unavailable 0 + [place] [address] [facility] Unavailable [address] + [place] [address] DAX LOCK/LEROY THOMASON Unavailable [address] + [place] [address] BRANDANDBMICHAEL, DAX Unavailable 0 + [place] [address] [facility] Unavailable [address] + [place] [address] DAX LOCK/THOMAS,RIK Unavailable [address] + [place] [address] BRANDANDBMICHAEL, DAX Unavailable 0 + [place] [address] [facility] Unavailable [address] + [place] [address] DAX LOCK/THOMAS,RIK Unavailable [address] + [place] [address] BRANDANDBMICHAEL, DAX Unavailable 0 + [place] [address] [facility] Unavailable [address] + [place] [address] DAX LOCK/THOMAS,RIK Unavailable [address] + [place] [address] GAGE, DAX Unavailable 0 + [place] [address] Care Team Providers Name Role Phone Maricruz Posada Attending Unavailable Maricruz Posada Referring Unavailable Maricruz Posada Attending Unavailable Jazmin Peace Attending Unavailable Robbin Perez Primary Care Unavailable Robbin Perez Attending Unavailable Robbin Perez Primary Care Unavailable Robbin Perez Attending Unavailable Robbin Perez Referring Unavailable Robbin Perez Primary Care Unavailable Maricruz Posada Attending Unavailable Maricruz Posada Attending Unavailable Robbin Perez Primary Care Unavailable Maricruz Posada Attending Unavailable Gege Fallon Attending Unavailable Robbin Perez Primary Care Unavailable PROBLEMS PROBLEMS DATE TYPE CONDITION / CODE ATTENDING STATUS SOURCE 08/21/2018 Unknown Z12.4 - Encounter Albino Active [place] for screening for [facility] malignant neoplasm Hospital of cervix / Repository Z12.4(ICD-10) 08/21/2018 Unknown Z11.3 - Encounter Albino Active [place] for screening for [facility] infections with a Hospital predominantly Repository sexual mode of transmission / Z11.3(ICD-10) 07/27/2018 Unknown Z34.81 - Encounter Albino Active [place] for supervision of [facility] other normal Hospital , first Repository trimester / Z34.81(ICD-10) 07/19/2018 Unknown 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 / Hospital E04.1(ICD-10) Repository 11/08/2017 Unknown N92.5 - Other Jazmin Peace Active [place] specified [facility] menstruation / Hospital N92.5(ICD-10) Repository PROCEDURES PROCEDURES No Procedure Records FoundRESULTS RESULTS CT/NG [facility] BY PCR Collected: 08/21/2018 Status: F Source: [place] 1:30 PM [facility] TYPE CODE TESTS RESULT OUT OF RANGE REFERENCE UNITS LAB L8200.2100 Negative Normal Chlam Negative Trac PCR LAB L8200.2200 Negative Normal NG by Negative PCR Performed By: #### L8200.2000 #### [facility] [address] [place], [address] PAP I-G W/RFX Collected: 08/21/2018 Status: F Source: [place] HRHPV-APTIMA 1:30 PM [facility] Order Comment: CYTOLOGY INFORMATION: - CLINICAL INFORMATION: - DATE LMP/MENOPAUSE: 06/26/18 LMP - COLLECTION VIAL: Thin Prep Vial - MALE INFERTILITY SPECIALIST SOURCE: CERVICAL/ENDOCERVICAL - COLLECTION TECHNIQUE: BRUSH/SPATULA Specimen Comment: [id number] Specimen Comment: Source.............Endocervix Specimen Comment: LMP / Prev Treat...[id number]=[id number] Specimen Comment: No. of containers..01 ThinPrep Vial [...] Normal PERFORM Comment Result Comment: Faith Talbert, Telesales Representative (ASCP) LAB L7400.2575 . Normal TEST METHOD [...] no HPV testing was performed. Performed at: [facility] [id number] [employer]: Radha Knowles MD, Phone: [phone] Performed By: #### L7400.0353 #### [facility] (refer to report for specific site) refer to report for address and phone number HCG TITER QUANT., Collected: 07/29/2018 Status: F Source: [place] SERUM 10:44 AM [facility] TYPE CODE TESTS RESULT OUT OF RANGE REFERENCE UNITS LAB L700.8000 <9 non-preg mIU/mL High HCG 632 QUANT. Performed By: #### L700.8000 #### [facility] [address] [place], [place], [address] HCG TITER QUANT., Collected: 07/27/2018 Status: F Source: [place] SERUM 9:14 AM [facility] TYPE CODE TESTS RESULT OUT OF RANGE REFERENCE UNITS LAB L700.8000 <9 non-preg mIU/mL High HCG 296 QUANT. Performed By: #### L700.8000 #### [facility] [address] [place], [place], [address] HCG TITER QUANT., Collected: 07/25/2018 Status: F Source: [place] SERUM 12:39 PM [facility] TYPE CODE TESTS RESULT OUT OF RANGE REFERENCE UNITS LAB L700.8000 <9 non-preg mIU/mL High HCG 144 QUANT. Performed By: #### L700.8000 #### [facility] [address] [place], [address] THYROID Observed: 07/24/2018 Status: F Source: [place] 2:09 PM [facility] REPOSITORY [facility] Imaging Services [address] [place] [address] Thyroid MR#: [id number] Acct: [id number] Name: SANGEETHA THOMAS Rep #: [id number] : 1995 F 23 From: Kash Burton DO PCP: Robbin Perez DO Status: REG CLI Study: Thyroid Date of Exam: 07/24/18 Exam# [id number] Ordering Dr: Robbin Perez DO STUDY: THYROID [...] Kash Burton DO at 16:02 EST Tel [phone], Service support , CC: Robbin Perez DO Oil Developer: Signed THYROID STIM HORMONE Collected: 07/19/2018 Status: F Source: [place] (TSH) 8:03 AM [facility] TYPE CODE TESTS RESULT OUT OF RANGE REFERENCE UNITS LAB L501.9520 0.358-3.74 uIU/mL Normal TSH 2.38 Performed By: #### L501.9520, L506.0400 #### [facility] [address] [place], [place], [address] T4 FREE DIRECT Collected: 07/19/2018 Status: F Source: [place] 8:03 AM [facility] TYPE CODE TESTS RESULT OUT OF RANGE REFERENCE UNITS LAB L506.0400 0.76-1.46 ng/dL Normal T4 FREE 0.89 DIRECT Performed By: #### L501.9520, L506.0400 #### [facility] [address] [place], [address] LESION (CHOOSE SITE) Observed: 04/26/2018 Status: F Source: [place] 12:00 AM [facility] Patient: SANGEETHA THOMAS : 1995 () Acct Num: [id number] Phys: Gege Fallon MD Unit Num: [id number] Loc: [facility] Specimen: [id number] Received: 04/26/181313 Spec Type: Lesion TISSUES TISSUES: Skin of arm COMMENT Immunohistochemistry ([id number]) supports the above diagnosis. Please make reference to previous specimen ([id number]) atypical nevus, left lower back, excision with [...] of embedding. / KYRA:lizett 04/26/18 TC:1 CPT: 29858 HEADER OPERATION: Punch biopsy PRE-OP DIAGNOSIS: Suspicious mole D22.9 TISSUE SUBMITTED: Left upper arm biopsy MICROSCOPIC DESCRIPTION Slides are reviewed. MICROSCOPIC DIAGNOSIS Left upper arm, biopsy: Compound dysplastic nevus, completely excised in the planes of sections examined. SJ:lizett 04/27/18 Signed Oli Umaña 04/28/18 <signature on file> Performed By: #### PLES #### [facility] [address] [place], [address] IMMUNOHISTOCHEMISTRY Observed: 04/26/2018 Status: F Source: [place] 12:00 AM [facility] Patient: SANGEETHA THOMAS : 1995 (/) Acct Num: [id number] Phys: Gege Fallon MD Unit Num: [id number] Loc: [facility] Specimen: [id number] Received: 04/27/18 - 1221 Spec Type: IMMUNO TISSUES TISSUES: Skin of arm SPECIMEN INFORMATION: Tissue Source: Left upper arm punch biopsy Clinical Info: Suspicious mole Specimen Number: [id number] CPT code: 30543, 61105 x3 METHODOLOGY: Deparaffinized sections of prefer/formalin-fixed tissue [...] developed and their performance characteristics determined by [facility]. They may not have been cleared or approved by the U.S. Food and Drug Administration. The FDA has determined that such clearance or approval is not necessary. INTERPRETATION: Left upper arm, punch biopsy: Compound dysplastic nevus. SJ:lizett 04/27/18 Case has been reviewed in consultation with Dr. Conde who concurs with the above diagnosis. IDC:[facility] [address] [address] Signed Oli Davisin 04/28/18 <signature on file> Performed By: #### PIMM #### [facility] [address] [place] [address]. [place], [place], [address] CBC-COMPLETE BLOOD CNT Collected: 12/20/2017 Status: F Source: [place] NO DIFF 9:56 [facility] REPOS[facility]ORY TYPE CODE TESTS RESULT OUT OF [...] MPV 10.2 Performed By: #### L100.0500 #### [facility] [address] [place], [place] [address]. [place], [place], [address] HEMOGLOBIN A1C Collected: 12/20/2017 Status: F Source: [place] 9:56 [facility] REPOSITORY TYPE CODE TESTS RESULT OUT OF RANGE REFERENCE UNITS LAB L501.9985 4.2-6.3 % Normal HGB A1C 5.2 Performed By: #### L501.9985 #### [facility] [address] [place], [place], [address] COMPREHENSIVE METABOLIC Collected: 12/20/2017 Status: F Source: [place] MARCUS 9:56 AM [facility] Order Comment: PLEASE ADD GGT TO [...] Normal GAP 9 Performed By: #### L500.4050, L501.90031, L501.9520, L506.0400, L3100.5125, L3100.5420, L3300.1750, L500.4100, L501.5100 #### [facility] [address] [place], [place], [address] FREE T3 Collected: 12/20/2017 Status: F Source: [place] 9:56 AM [facility] Order Comment: PLEASE ADD GGT TO BLOOD FROM 12/20/17. RACK TG2 6 M, TG3 5 N, TG3 6 G, WG3 1 B. SPECIMEN WAS SPUN WITH IN 20 MINUTES OF DRAW. CSTROCK PLEASE ADD LIPID TO BLOOD FROM 12-20-17 TYPE CODE TESTS RESULT OUT OF RANGE REFERENCE UNITS LAB L501.82588 2.18-3.98 pg/mL Normal FREE T3 3.5 Performed By: #### L500.4050, L501.81388, L501.9520, L506.0400, L3100.5125, L3100.5420, L3300.1750, L500.4100, L501.5100 #### [facility] [address] [place], [place], [address] THYROID STIM HORMONE Collected: 12/20/2017 Status: F Source: [place] (TSH) 9:56 AM [facility] Order Comment: PLEASE ADD GGT TO BLOOD FROM 12/20/17. RACK TG2 6 M, TG3 5 N, TG3 6 G, WG3 1 B. SPECIMEN WAS SPUN WITH IN 20 MINUTES OF DRAW. CSTROCK PLEASE ADD LIPID TO BLOOD FROM 12-20-17 TYPE CODE TESTS RESULT OUT OF RANGE REFERENCE UNITS LAB L501.9520 0.358-3.74 uIU/mL Normal TSH 1.86 Performed By: #### L500.4050, L501.84368, L501.9520, L506.0400, L3100.5125, L3100.5420, L3300.1750, L500.4100, L501.5100 #### [facility] [address] [place], [address] T4 FREE DIRECT Collected: 12/20/2017 Status: F Source: [place] 9:56 AM [facility] Order Comment: PLEASE ADD GGT TO BLOOD FROM 12/20/17. RACK TG2 6 M, TG3 5 N, TG3 6 G, WG3 1 B. SPECIMEN WAS SPUN WITH IN 20 MINUTES OF DRAW. CSTROCK PLEASE ADD LIPID TO BLOOD FROM 12-20-17 TYPE CODE TESTS RESULT OUT OF RANGE REFERENCE UNITS LAB L506.0400 0.76-1.46 ng/dL Normal T4 FREE 1.02 DIRECT Performed By: #### L500.4050, L501.66248, L501.9520, L506.0400, L3100.5125, L3100.5420, L3300.1750, L500.4100, L501.5100 #### [facility] [address] [place], [place], [address] FOLLICLE STIMULATING Collected: 12/20/2017 Status: F Source: [place] HORMONE 9:56 AM [facility] Order Comment: PLEASE ADD GGT TO [...] JANUARY 03, 2012 Performed By: #### L500.4050, L501.16708, L501.9520, L506.0400, L3100.5125, L3100.5420, L3300.1750, L500.4100, L501.5100 #### [facility] [address] [place], [address] PROLACTIN Collected: 12/20/2017 Status: F Source: [place] 9:56 AM [facility] Order Comment: PLEASE ADD GGT TO [...] JANUARY 03, 2012 Performed By: #### L500.4050, L501.94616, L501.9520, L506.0400, L3100.5125, L3100.5420, L3300.1750, L500.4100, L501.5100 #### [facility] [address] [place], [address] ESTRADIOL Collected: 12/20/2017 Status: F Source: [place] 9:56 AM [facility] Order Comment: PLEASE ADD GGT TO [...] DETERMINE ESTRADIOL CONCENTRATION. Performed By: #### L500.4050, L501.68158, L501.9520, L506.0400, L3100.5125, L3100.5420, L3300.1750, L500.4100, L501.5100 #### [facility] [address] [place], [address] LIPID PROFILE Collected: 12/20/2017 Status: F Source: [place] 9:56 AM [facility] Order Comment: PLEASE ADD GGT TO [...] Normal VLDL 28 Performed By: #### L500.4050, L501.79306, L501.9520, L506.0400, L3100.5125, L3100.5420, L3300.1750, L500.4100, L501.5100 #### [facility] [address] [place], [address] GGTP Collected: 12/20/2017 Status: F Source: [place] 9:56 AM [facility] Order Comment: PLEASE ADD GGT TO BLOOD FROM 12/20/17. RACK TG2 6 M, TG3 5 N, TG3 6 G, WG3 1 B. SPECIMEN WAS SPUN WITH IN 20 MINUTES OF DRAW. CSTROCK PLEASE ADD LIPID TO BLOOD FROM 12-20-17 TYPE CODE TESTS RESULT OUT OF RANGE REFERENCE UNITS LAB L501.5100 5-55 U/L Normal GGTP 22 Performed By: #### L500.4050, L501.53408, L501.9520, L506.0400, L3100.5125, L3100.5420, L3300.1750, L500.4100, L501.5100 #### [facility] [address] [place], [address] VITAMIN D,25 HYDROXY Collected: 12/20/2017 Status: F Source: [place] 9:56 AM [facility] TYPE CODE TESTS RESULT OUT OF RANGE REFERENCE UNITS LAB L506.1000 29.95-100.01 ng/mL Normal Vitamin D 43.4 25-OH Result Comment: Vitamin D 25(OH) Status Range Deficiency <20 ng/mL (50nmol/L) Insuffciency 20 - 30 ng/mL (50 - 75 nmol/L) Sufficiency 30 - 100 ng/mL (75 - 250 nmol/L) Toxicity >100 ng/mL (>250 nmol/L) Performed By: #### L506.1000, L509.3000, L509.4001, L509.6000 #### [facility] [address] [place], [address] TESTOSTERONE, SERUM TOTAL Collected: 12/20/2017 Status: F Source: [place] 9:56 AM [facility] TYPE CODE TESTS RESULT OUT OF [...] By: #### L506.1000, L509.3000, L509.4001, L509.6000 #### [facility] [address] [place], [address] PROGESTERONE LEVEL Collected: 12/20/2017 Status: F Source: [place] 9:56 AM [facility] TYPE CODE TESTS RESULT OUT OF [...] By: #### L506.1000, L509.3000, L509.4001, L509.6000 #### [facility] [address] [place], [address] CORTISOL SERUM Collected: 12/20/2017 Status: F Source: [place] 9:56 AM [facility] TYPE CODE TESTS RESULT OUT OF RANGE REFERENCE UNITS LAB L509.6000 3.09-22.40 ug/dL Normal CORTISOL 7.40 Result Comment: Adult (AM) 4.30 - 22.40 ug/dL Adult (PM) 3.09 - 16.66 ug/dL Performed By: #### L506.1000, L509.3000, L509.4001, L509.6000 #### [facility] [address] [place], [address] SEX HORMONE-BINDING Collected: 12/20/2017 Status: F Source: [place] GLOBULIN 9:56 AM [facility] Order Comment: Has Patient had Radioactive Injection for X-ray?: N TYPE CODE TESTS RESULT OUT OF RANGE REFERENCE UNITS LAB L3100.5060 24.6-122.0 nmol/L Normal SHBG 105.7 Result Comment: Performed at: [address] [id number] [employer] Plasma Arc: Matthew Powell PhD, Phone: [phone] Performed By: #### L3100.5060, L3300.1500 #### [facility] (refer to report for specific site) refer to report for address and phone number DHEA SULFATE Collected: 12/20/2017 Status: F Source: [place] 9:56 AM [facility] Order Comment: Has Patient had Radioactive Injection for X-ray?: N TYPE CODE TESTS RESULT OUT OF RANGE REFERENCE UNITS LAB L3300.1500 110.0-431.7 ug/dL Normal DHEA SULF 155.9 4020 Performed By: #### L3100.5060, L3300.1500 #### [facility] (refer to report for specific site) refer to report for address and phone number [phone] Collected: Status: F Source: [place] 12/20/2017 9:56 AM [facility] Order Comment: Has Patient had Radioactive Injection for X-ray?: N TYPE CODE TESTS RESULT OUT OF RANGE REFERENCE UNITS LAB L3100.9000 . ng/dL Normal HYDROXPROG 17 36 Result Comment: Adult Female Follicular 15 - 70 Luteal 35 - 290 This test was developed and its performance characteristics determined by [facility]. It has not been cleared or approved by the Food and Drug Administration. Performed at: [address] [id number] [employer] Arc: Edmond Kwong MD, Phone: [phone] Performed By: #### L3100.9000 #### [facility] (refer to report for specific site) refer to report for address and phone number HCG TITER QUANT., Collected: 11/08/2017 Status: F Source: [place] SERUM 12:21 PM [facility] TYPE CODE TESTS RESULT OUT OF RANGE REFERENCE UNITS LAB L700.8000 <9 non-preg mIU/mL Normal HCG < 1 QUANT. Performed By: #### L700.8000 #### [facility] [address] [place], [place], [address] ALLERGIES ALLERGIES DATE TYPE / CODE NAME / CODE REACTION SEVERITY SOURCE 12/15/2015 Drug No Known Unknown [facility] Allergy/4160 Allergies/F00 Hospital [address](SNOMED 6306541(RXNOR Repository CT) M) ENCOUNTERS ENCOUNTERS ADMIT/DISCHARGE ACCOUNT ADMITTING ENCOUNTER LOCATION SOURCE NUMBER CLASS 08/21/2018 [id number] Ambulatory [place] [facility] ing:LABSPEC Repository 07/29/2018 [id number] Ambulatory [place] 8 [facility] ing:LAB Repository 07/25/2018 [id number] [place] 8 [facility] ing:LAB.FUTUR Repository E 07/24/2018 [id number] Ambulatory [place] 1 [facility] ing:US Repository 07/19/2018 [id number] Ambulatory [place] 9 [facility] ing:BFHLAB Repository 04/26/2018 [id number] Ambulatory [place] 2 [facility] ing:BFHLAB Repository 12/20/2017 [id number] Ambulatory [place] 2 [facility] ing:WOBLAB Repository 12/19/2017 [id number] Ambulatory [place] 1 [facility] ing:LAB.FUTUR Repository E 11/08/2017 [id number] Ambulatory [place] 4 [facility] ing:LAB.FUTUR Repository E PAYERS PAYERS ENCOUNTER GUARANTOR PAYER SUBSCRIBER SOURCE 08/21/2018 SANGEETHA Rosales Primary Insurance:[facility] DAX Freire NALDOB: [place] [id number] [facility] [id number] Number: Repository [id number]: [phone] [id number] [phone] () Date:1363-75-30[address] [address]QXHXKR[address]LF, [place] [address]SC: CHECK WEBSITE 08/21/2018 Secondary NOT GIVENUNK [place] Insurance:SELF PAY [facility] Number: Effective Repository Date:2018-08-21 07/29/2018 SANGEETHA Rosales Primary Insurance:[facility] DAX Freire NALDOB: [place] [id number] [facility] [id number] [place] Number: Repository [address]Jan: 330 [id number] [phone] () Date:7435-06-09ZY [address] [address]FTVJJKISM, [place] [address]FG: CHECK WEBSITE 07/29/2018 Secondary NOT GIVENUNK [place] Insurance:SELF PAY [facility] Number: Effective Repository Date:2018-07-29 07/25/2018 SANGEETHA Rosales Primary Insurance:[facility] DAX HITCHCOCKB: [place] [id number] [facility] [id number] Number: Repository [id number]: 330 [id number] [phone] () Date:1404-92-38KT [address] [address]ZARNKCZLR, [place] [address]NH: CHECK WEBSITE 07/25/2018 Secondary NOT GIVENUNK [place] Insurance:SELF PAY [facility] Number: Effective Repository Date:2018-07-25 07/24/2018 SANGEETHA Rosales Primary Insurance:[facility] DAX HITCHCOCKB: [place] [id number] [facility] [id number], [place] Number: Repository [id number]: 330 [id number] [phone] () Date:7274-00-32HL [address] [address]LRZLZ[address], [place] [address]EE: CHECK WEBSITE 07/24/2018 Secondary NOT GIVENUNK [place] Insurance:SELF PAY [facility] Number: Effective Repository Date:2018-07-19 07/19/2018 Sangeetha Rosales Primary Insurance:[facility] DAX HITCHCOCKB: [place] [address] [facility] [id number] Number: Repository [address]Mbt: 330 [id number] [phone] () Date:1648-99-19XJ [address] [address]VBKCGWVMR, [place] [address]XC: CHECK WEBSITE 07/19/2018 Secondary NOT GIVENUNK [place] Insurance:SELF PAY [facility] Number: Effective Repository Date:2018-07-19 04/26/2018 Sangeetha Rosales Primary Insurance:[facility] DAX LOCKDOB: [place] [address] [facility] [id number], [place] Number: Repository [id number]: 330 [id number] [phone] (HP) Date:4268-22-74CC [address] [address]EJVOEGYGV, [place] [address]SH: CHECK WEBSITE 04/26/2018 Secondary NOT GIVENUNK [place] Insurance:SELF PAY [facility] Number: Effective Repository Date:2018-04-26 12/20/2017 Sangeetha Rosales Primary Insurance:[facility] DAX HITCHCOCKB: [place] Dunn [facility] [id number] Children's Hospital [place] [address]Frj: Number: Repository [id number] (HP) Date:7277-83-40WD [address] [address]LVLTGQMAZ, [place] [address]EN: CHECK WEBSITE 12/20/2017 Secondary NOT GIVENUNK [place] Insurance:SELF PAY [facility] Number: Effective Repository Date:2017-12-20 12/19/2017 Sangeetha Rosales Primary Insurance:[facility] DXA HITCHCOCKB: [place] Dunn [facility] [id number] Children's Hospital [place] [address]Vqc: Number: Repository [id number] (HP) Date:5008-86-30CN [address] [address]CTLBJNPZG, [place] [address]VV: CHECK WEBSITE 12/19/2017 Secondary NOT GIVENUNK [place] Insurance:SELF PAY [facility] Number: Effective Repository Date:2017-11-24 11/08/2017 Sangeetha Rosales Primary Insurance:[facility] DAX HITCHCOCKB: [place] Dunn [facility] [id number] Children's Hospital [place] [address]Lkv: Number: Repository [id number] (HP) Date:1890-74-39UK [address] [address]EZQFEMFNP, [place] [address]IZ: CHECK WEBSITE 11/08/2017 Secondary NOT GIVENUNK [place] Insurance:SELF PAY [facility] Number: Effective Repository Date:2017-11-08
== END ==
PROVIDERS: Referring Provider Obstetrics & Gynecology; Visit Provider Obstetrics & Gynecology
DX: Z34.81 Encounter for supervision of other normal pregnancy, first trimester (principal)
CPT/HCPCS: 36415; 84702

== ENCOUNTER → 2018-08-21 14:09 | Outpatient (CLI) | payer OTHER, SELFPAY ==
[2018-08-21 19:42] LABS: Chlamydia Trachomatis by PCR Negative (Negative); Neisserai gonorrhoeae by PCR Negative (Negative); Probe Check PASS; Sample Adequacy Control PASS; Specimen Processing Control PASS
[2018-08-24 14:35] LABS: HPV Reflexed? NOT INDICATED
== END ==
PROVIDERS: Visit Provider Obstetrics & Gynecology
DX: Z12.4 Encounter for screening for malignant neoplasm of cervix (principal); Z11.3 Encounter for screening for infections with a predominantly sexual mode of transmission
CPT/HCPCS: 87491; 87591; 87624; 88175; G0145

== ENCOUNTER → 2018-09-18 14:19 | Outpatient (CLI) | payer OTHER, SELFPAY ==
[2018-09-18 15:51] LABS: Color, Urine Yellow (Yellow); Glucose, Dipstick Normal (Normal); Ketone-Dipstick Negative (Negative); Leukocyte Esterase-Dipstick 25 /ul (Negative); Nitrite-Dipstick Negative (Negative); Occult Blood-Urine Negative /ul (Negative); Protein-Dipstick Negative (Negative); Urine Bilirubin Dipstick Negative (Negative); Urine Clarity Clear (Clear); Urine Urobilinogen Normal (Normal); Urine pH 6.5 (5.0 - 8.0)
[2018-09-18 17:32] LABS: Absolute Lymphocyte Count 3.07 X10^3/ul (0.83-4.51); Absolute Neutrophil Count 6.3 X10^3/uL (2.0-7.7); Basophil# 0.04 X10^3/uL; Basophil% 0.4 % (0-1); Eosinophil# 0.08 X10^3/uL; Eosinophils% 0.8 % (0-5); Hematocrit 36.2 % (37-47); Lymphocyte # 3.07 X10^3/ul (4.0); Lymphocyte % 30.4 % (19-41); Mean Corp Hgb Conc 33.1 g/gl (32-36); Mean Corpuscular Hgb 30.8 pg (27.0-32.0); Mean Corpuscular Volume 93.1 fL (81-99); Mean Platelet Vol. 10.4 fl (6.2-12.0); Monocyte# 0.62 X10^3/uL; Monocyte% 6.1 % (0-10); Neutrophil # 6.27 X10^3/uL (2.7-7.7); Neutrophil % 62.2 % (47-70); Platelet Count 265 K/mm3 (150-450); RBC Distribution Width CV 12.3 % (11.6-14.6); RBC Distribution Width SD 41.1 fl (35.1-43.9); Red Blood Count 3.89 M/mm3 (4.2-5.4); White Blood Count 10.1 K/mm3 (4.4-11.0)
[2018-09-18 17:33] LABS: POSITIVE COUNT NO; POSITIVE DIFFERENTIAL NO; POSITIVE MORPHOLOGY NO
[2018-09-18 17:47] LABS: Thyroid Stim Hormone (TSH) 1.52 uIU/mL (0.358-3.74)
[2018-09-18 18:33] LABS: HIV - WCH Non-Reactive (Nonreactive); Rubella IgG 356.2 IU/mL; Vitamin D,25 Hydroxy 22.8 ng/mL (29.95-100.01)
[2018-09-20 12:04] LABS: HEPATITIS B SURFACE AG Negative (Negative); Hep C Antibodies <0.1 s/co ratio (0.0-0.9)
[2018-09-21 23:33] LABS: Prenatal RPR NONREACTIVE (NONREACTIVE)
== END ==
PROVIDERS: Visit Provider Obstetrics & Gynecology
DX: Z34.81 Encounter for supervision of other normal pregnancy, first trimester (principal)
CPT/HCPCS: 36415; 81002; 82306; 84443; 85025; 86703; 86762; 86803; 87340

== ENCOUNTER → 2019-01-09 | Outpatient (CLI) | payer OTHER, SELFPAY ==
[2019-01-09 12:42] LABS: Glucose Challenge Gest 1H 50g 110 mg/dL (70-140)
[2019-01-09 13:16] LABS: Hematocrit 32.6 % (37-47); Mean Corp Hgb Conc 33.7 g/gl (32-36); Mean Corpuscular Hgb 31.5 pg (27.0-32.0); Mean Corpuscular Volume 93.4 fL (81-99); Mean Platelet Vol. 9.7 fl (6.2-12.0); Platelet Count 263 K/mm3 (150-450); RBC Distribution Width CV 12.9 % (11.6-14.6); RBC Distribution Width SD 43.2 fl (35.1-43.9); Red Blood Count 3.49 M/mm3 (4.2-5.4); White Blood Count 15.3 K/mm3 (4.4-11.0)
[2019-01-09 13:19] LABS: Scan Indicated on CBC? Y/N NO
== END | disposition home or self-care (01) ==
LOC: LABSPEC 11:06
PROVIDERS: Visit Provider Obstetrics & Gynecology
DX: Z34.83 Encounter for supervision of other normal pregnancy, third trimester (principal)
CPT/HCPCS: 82950; 85027

== ENCOUNTER 2019-02-17 21:55 | Outpatient (CLI) | payer OTHER, SELFPAY ==
[2019-02-17 22:47] VITALS: BMI 34.2
--- NOTE | 2019-02-18 21:01 | OB.TRI.NOTE ---
History of Present Illness Date of Service: 02/17/19 Was patient seen by the physician?: Yes Reason For Visit: DECREASED MOVEMENT Date of Service: 02/17/19 Final SHU: 04/02/19 Gestational age: 33 Weeks and 5 Days History of Present Illness: 23 yo female presents for NST. Anterior placenta and decreased movement. No UCs. No vaginal bleeding No other concerns voiced Allergies No Known Allergies Allergy (Verified 02/17/19 22:49) NST - FHR Rate Baby A Baseline: 130-140 with avg variability. Accels to 160-170s Variability:: Moderate Accelerations:: 15 x 15 Decelerations:: None NST Reactive:: Yes, Appropriate for gestational age FHR Category:: Category I Uterine Activity:: Rare UC noted on monitor Impression/Plan 33 5/7 wk Decreased movement. Reactive NST Home. Keep next scheduled appt
== END 2019-02-17 22:55 | disposition home or self-care (01) ==
LOC: WPOUT 22:20 → WP 22:26
PROVIDERS: Visit Provider Obstetrics & Gynecology
DX: O36.8130 Decreased fetal movements, third trimester, not applicable or unspecified (principal); Z3A.33 33 weeks gestation of pregnancy
CPT/HCPCS: 59025; 59050; 99218; G0378

== ENCOUNTER → 2019-03-07 | Outpatient (CLI) | payer OTHER, SELFPAY ==
[2019-02-17 22:47] VITALS: BMI 34.2
== END | disposition home or self-care (01) ==
LOC: LABSPEC 16:21
PROVIDERS: Visit Provider Obstetrics & Gynecology
DX: Z36.85 Encounter for antenatal screening for Streptococcus B (principal)
CPT/HCPCS: 87081

== ENCOUNTER 2019-03-29 19:50 | Outpatient (CLI) | payer OTHER, SELFPAY ==
[2019-03-29 20:30] VITALS: BMI 38.2
[2019-03-29 22:15] VITALS: RESP 18
--- NOTE | 2019-05-04 09:15 | OB.TRI.NOTE ---
- Problem List (1) False labor after 37 completed weeks of gestation Status: Acute History of Present Illness Date of Service: 03/29/19 Was patient seen by the physician?: No Reason For Visit: RULE OUT LABOR Date of Service: 03/29/19 Final SHU: 04/02/19 Final SHU Source: US <20 weeks Gestational age: 39 Weeks and 1 Days History of Present Illness: 24yo G1 @ 39 1/7wga with c/o contractions. Allergies ibuprofen Adverse Reaction (Verified 03/31/19 00:18) Upset Stomach - Pertinent Past Medical History Medical History: Past Medical History (Last Updated 03/31/19 @ 08:38 by Maricruz Posada MD) Seasonal allergies Physical Exam Vitals: Vital Signs Resp 18 03/29/19 22:15 Cervix Dilation (cm): 2 - per RN exam Station: -2 Effacement (%): 50 NST - FHR Rate Baby A Baseline: 140 Variability:: Moderate Accelerations:: 15 x 15 Decelerations:: None NST Reactive:: Yes FHR Category:: Category I Uterine Activity:: 2/10 min Impression/Plan 24yo G1 @ 39wga with false labor, CAt I FHR -d/c home
== END 2019-03-29 22:15 | disposition home or self-care (01) ==
LOC: WPOUT 20:36 → WP 20:37
PROVIDERS: Family Provider Obstetrics & Gynecology; Visit Provider Obstetrics & Gynecology
DX: O47.1 False labor at or after 37 completed weeks of gestation (principal); Z3A.39 39 weeks gestation of pregnancy
CPT/HCPCS: 59025; 59050; 99218; G0378

== ENCOUNTER 2019-03-31 02:40 | Inpatient (IN) | payer OTHER, SELFPAY ==
[2019-03-31] VITALS (15 sets, daily range): BP systolic 98–128; BP diastolic 53–80; PULSE 110–133; RESP 12–21; TEMP 36.1–37.2; O2SAT 96–100; BMI 34.2
[2019-03-31] MEDS: Lactated Ringers 1,000 ML 999 ML IV ×4 (03:04→13:40)
[2019-03-31 03:16] LABS: Absolute Lymphocyte Count 2.82 X10^3/uL (0.83-4.51); Absolute Neutrophil Count 16.8 X10^3/uL (2.0-7.7); Basophil# 0.06 X10^3/uL; Basophil% 0.3 % (0-1); Eosinophil# 0.03 X10^3/uL; Eosinophils% 0.1 % (0-5); Hematocrit 36.6 % (37-47); Hemoglobin 12.5 g/dL (12.0-15.0); Lymphocyte # 2.82 X10^3/ul (4.0); Lymphocyte % 13.4 % (19-41); Mean Corp Hgb Conc 34.2 g/dL (32-36); Mean Corpuscular Hgb 31.9 pg (27.0-32.0); Mean Corpuscular Volume 93.4 fL (81-99); Mean Platelet Vol. 10.5 fl (6.2-12.0); Monocyte# 1.09 X10^3/uL; Monocyte% 5.2 % (0-10); NRBC Flagged by Analyzer 0 % (0-5); Neutrophil # 16.75 X10^3/uL (2.7-7.7); Neutrophil % 79.6 % (47-70); Platelet Count 199 K/mm3 (150-450); RBC Distribution Width CV 13.3 % (11.6-14.6); RBC Distribution Width SD 45.1 fl (35.1-43.9); Red Blood Count 3.92 M/mm3 (4.2-5.4); White Blood Count 21.1 K/mm3 (4.4-11.0)
[2019-03-31] MEDS: Lactated Ringers 1,000 ML 50 ML IV ×2 (04:11→08:08)
[2019-03-31] MEDS: fentaNYL-bupivacaine (epidural) 100 ML BAG EPIDURAL ×4 (05:52→14:52)
--- NOTE | 2019-03-31 08:00 | PCM.HP.OB ---
- Problem List (1) 39 weeks gestation of Status: Acute History Date of Admission: 03/31/19 Final SHU: 04/02/19 Final SHU Source: US <20 weeks Gestational age: 39 Weeks and 5 Days History of this : This is a 23 year-old, G [], P [], at 39 weeks gestational age. Allergies ibuprofen Adverse Reaction (Verified 03/31/19 00:18) Upset Stomach Home Medications: Home Medications Prenatabs FA 1 tab PO DAILY 02/17/19 Cholecalciferol (Vitamin D3) [Vitamin D3] 4,000 unit PO DAILY 03/29/19 Docusate Sodium [Colace] 100 mg PO DAILY 03/29/19 Fluticasone 0.05% [Flonase Nasal [place]] 2 spray NASAL DAILY 03/29/19 Smoking Status: Never smoker Alcohol: None Number of Fetus(es): 1 NST - FHR Rate Baby A Baseline: 140 Variability:: Moderate Accelerations:: 15 x 15 Decelerations:: Variable NST Reactive:: Yes FHR Category:: Category II Uterine Activity:: 1-2/10 min History Past Pregnancies: Past Pregnancies Delivery Date Name GA/Weeks Outcome Route Weight Infant Gender Labor Length Anesthesia Delivery Location Provider FOB Labs: Mom's Problem List Problem Status Onset Code 39 weeks gestation of Acute Z3A.39 Mom's Labs & Results 03/31/19 03/31/19 03:00 03:00 WBC 21.1 H RBC 3.92 L Hgb 12.5 Hct 36.6 L MCV 93.4 MCH 31.9 MCHC 34.2 RDW Std Deviation 45.1 H RDW Coeff of Amber 13.3 Plt Count 199 MPV 10.5 Immature Gran % (Auto) 1.400 H Neut % (Auto) 79.6 H Lymph % (Auto) 13.4 L [place] % (Auto) 5.2 Eos % (Auto) 0.1 Baso % (Auto) 0.3 Absolute Neuts (auto) 16.8 H Absolute Lymphs (auto) 2.82 Nucleated RBC % 0 Blood Type A POSITIVE Antibody Screen NEGATIVE Course Did the patient receive Yes care? Labs Blood Type: A RH: POSITIVE RPR/VDRL/Syphilis Nonreactive Rubella status Immune HbSAg Negative Date Done: 09/18/18 Chlamydia Negative Gonorrhea Negative HIV/AIDS Non-Reactive Group B Strep: Negative Current Obstetrical History Gestational Diabetes No Incompetent Cervix No Infertility No IUGR No Macrosomia No Hypertension/Pre-eclampsia No Placenta Previa/Abruption No PTL/PROM No Uterine anomaly No Oligohydramnios No Polyhydramnios No Multiple gestation No Past Medical History Asthma No Diabetes No Hypertension No Heart disease No Mitral valve prolapse No Neurologic/Seizure disorder/ No Migraines Kidney disease No Liver disease No Varicosities No Clotting disorders/Hx of DVT No Thyroid Dysfunction No Other medical diseases No Psychiatric disorders No Major trauma No Abnormal PAP smear No Sleep apnea No Mammogram in the last 2 years No Social History Marital Status: SINGLE Alleged father Korey Hx Smoking No Smoking Status Never smoker Expected Infant Delivery Method: Spontaneous Vaginal Number of Visits: 11 Review of Systems Respiratory: Denies: Shortness of Breath, Shortness of breath at rest Gastrointestinal: Denies: Abdominal Pain Physical Exam Vitals: AVSS General: Alert, Oriented x3, Cooperative, No apparent distress HEENT: Atraumatic, Normocephalic Cardiovascular: Regular Rhythm Lungs: Normal air movement Abdomen: Soft, Non Tender, Non-Distended, Gravid Extremities:: Other - trace edema Neurological: Neuro grossly 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 -Amniotomy performed with clear fluid -Continue in labor
--- NOTE | 2019-03-31 10:53 | PCM.PN.BLA ---
Progress Note LABOR PROGRESS NOTE Comfortable with epidural. No complaints. AVSS GEN - NAD, AAO x 3 SVE 7cm/90/0 per RN exam TOCO 2-3/10 min FHR 130, moderate variability, no accelerations. + prolonged deceleration to 3min x 2 with recovery to baseline. A/P 23yo G1 @ 39 5/7wga in active labor, CAt II fhr -Maternal and status overall reassuring -Patient repositioned with improvement of FHR tracing -Will continue to monitor closely -Continue in labor
--- NOTE | 2019-03-31 16:08 | PCM.PN.BLA ---
Progress Note LABOR PROGRESS NOTE Sangeetha reports she is tired. AVSS GEN - NAD, AAO x 3 SVE FD/0 station TOCO 4/10 min FHR 140, minimal variability, + variable decelerations A/P: 23yo G1 @ 39 5/7wga with arrest of descent Discussed with patient no further progress. Recommended section. risks/benefits/indications reviewed at length. Patient in agreement with plan. Proceed with section.
[2019-03-31] MEDS: Cefazolin 2 GM in 0.9% Normal Saline 100 ML IV (16:23)
[2019-03-31] MEDS: Oxytocin 30 units/NS 500 ml 30 UNITS/500 ML IV.SOLN 167 UNITS IV (18:00)
--- NOTE | 2019-03-31 18:05 | PCM.OPRPT ---
Problem List (1) 39 weeks gestation of Status: Acute (2) Arrest of descent, delivered, current hospitalization Status: Acute Delivery Classification: YANNI Final SHU: 04/02/19 Final SHU Source: US <20 weeks Gestational age: 39 Weeks and 5 Days Raymond doctor who attended delivery (if requested by OB): Salena Bazan Indications: 23-year-old 1 at 39-5/7 weeks gestational age who presented in labor. She progressed to fully dilated and pushed for over 3 hours with no further descent. She is advised to proceed with section. Procedural risks including pain, bleeding, infection, injury to bowel or urinary system, venous thromboembolism, need for further and surgery possibly including dilation and curettage or hysterectomy, need for transfusion, and . Patient was given opportunity to ask questions and questions were answered to her satisfaction. Indications for : Arrrest of Descent Description of Procedure: The patient was taken to the operating room and spinal analgesia was administered. She is placed in a dorsal supine position with left lateral tilt. The perineum and abdomen were prepped and draped in sterile fashion. And the spinal was found to be adequate. A Pfannenstiel incision was made using a scalpel and brought down to incise the subcutaneous tissue and rectus fascia at the midline. Subcutaneous tissue was bluntly dissected off the fascia laterally. The fascial incision was dissected laterally and cephalad using curved Joseph scissors. The superior leaflet of the rectus fascia was grasped using Andrae clamps and bluntly dissected and sharply dissected from the underlying rectus muscle. In a similar fashion the inferior rectus fascia was dissected from the underlying muscle. The rectus muscles were bluntly at the midline. The peritoneum was identified and entered [sharply]. The bladder blade was placed into the abdomen and the vesicouterine peritoneal fold identified. The fold was incised and a bladder flap created. Bladder blade was then repositioned to the abdomen. A low transverse hysterotomy was made using the [Metzenbaum scissors] to level of the membranes. The hysterotomy was extended bluntly cephalad and caudad. The membranes were then ruptured revealing clear fluid. The head was elevated and brought to the level of the hysterotomy and the delivered revealing female infant. The cord was doubly clamped and cut after 30 seconds. The infant was passed to awaiting [nursery personnel]. The placenta was [expressed] from the uterus and appeared intact on inspection. The uterus was cleared of debris. Bladder blade was repositioned there was brisk arteriolar bleeding from the hysterotomy edges and apices obscuring the anatomy. The hysterotomy was reapproximated using 0 Vicryl running locked suture however bleeding persisted consistent with hemorrhage and on further inspection appeared the posterior uterine wall was approximated to the anterior hysterotomy edge and the inferior hysterotomy edge was retracted deep into the pelvis with an extension. The inferior hysterotomy edge was isolated and the prior hysterotomy repair was taken down. The hysterotomy was then appropriately approximated using 0 Vicryl running lock suture with hemostasis attained. The bladder blade was removed. The anterior cul-de-sac was cleared of debris. The peritoneum and rectus muscles were reapproximated using 2-0 Vicryl running suture. The rectus fascia was closed using 0 Vicryl strata fix suture. The subcutaneous tissue was sponge irrigated and small capillary bleeding controlled using the Bovie device. The subcutaneous tissue was reapproximated using 2-0 Vicryl. The skin was closed using 4-0 Monocryl subcuticularly. A Mepilex occlusive dressing was placed over the incision. The fundus was firm. The patient was then transferred to the recovery room without further complication. Sponge, instrument, and needle counts were correct ?2. Amniotic Membrane Rupture Type: Artificial Amniotic Fluid Description: Clear Placenta Disposition: [facility] Drain: [place] to straight drain Fluids Replaced: 1200 ml Cord Entanglement: Around neck x 1, loose Nuchal Cord Compression: Without compression Cord Vessel Description: 3 Vessels Esitmated Blood Loss (ml): 2000 Infant Gender: Female (1 minute): 7 (5 minute): 9 Delayed cord clamping: Yes Pre-op Antibiotic Given: Ancef 2 grams IV x1 Pt instructed on risks of surgery: Bleeding, Anesthesia Risks, Infection, Injury to surrounding structure(s) including bowel and bladder Complications: - - hemorrhage - Admit VTE Documentation VTE Present on Admission: No VTE Mechan Device Prophylaxis: SCD's VTE Pharm Prophylaxis ordered?: No
[2019-03-31] MEDS: Cefazolin 1 GM/50 ML BAG IV (20:20)
[2019-03-31] MEDS: Lactated Ringers 1,000 ML 100 ML IV (20:20)
[2019-03-31 23:20] LABS: Absolute Lymphocyte Count 2.57 X10^3/uL (0.83-4.51); Absolute Neutrophil Count 17.7 X10^3/uL (2.0-7.7); Basophil# 0.05 X10^3/uL; Basophil% 0.2 % (0-1); Eosinophil# 0.08 X10^3/uL; Eosinophils% 0.4 % (0-5); Hematocrit 30.1 % (37-47); Hemoglobin 10.5 g/dL (12.0-15.0); Lymphocyte # 2.57 X10^3/ul (4.0); Lymphocyte % 11.7 % (19-41); Mean Corp Hgb Conc 34.9 g/dL (32-36); Mean Corpuscular Hgb 32.2 pg (27.0-32.0); Mean Corpuscular Volume 92.3 fL (81-99); Mean Platelet Vol. 10.4 fl (6.2-12.0); Monocyte# 1.29 X10^3/uL; Monocyte% 5.9 % (0-10); NRBC Flagged by Analyzer 0 % (0-5); Neutrophil # 17.73 X10^3/uL (2.7-7.7); Neutrophil % 80.9 % (47-70); Platelet Count 158 K/mm3 (150-450); RBC Distribution Width CV 13.8 % (11.6-14.6); RBC Distribution Width SD 46.5 fl (35.1-43.9); Red Blood Count 3.26 M/mm3 (4.2-5.4); White Blood Count 21.9 K/mm3 (4.4-11.0)
[2019-03-31 23:40] LABS: Anion Gap 8 (5-15); BUN 5 mg/dL (7-18); BUN/Creat Ratio 8.1 RATIO (10-20); Calcium,Total 7.3 mg/dL (8.5-10.1); Chloride 110 mmol/L (98-107); Creatinine, Serum 0.62 mg/dL (0.55-1.02); EST Glomerular Filtration Rate 127 mL/min (>60); Est Glom Filt Rate - Afr Amer 154 mL/min (>60); Estimated Creatinine Clearance 102.23 ml/min; Glucose 99 mg/dL (74-106); Potassium 3.7 mmol/L (3.5-5.1); Sodium Level 140 mmol/L (136-145)
[2019-04-01] VITALS (18 sets, daily range): BP systolic 98–111; BP diastolic 52–62; PULSE 97–136; RESP 16–18; TEMP 36.3–37.1; O2SAT 95–100
[2019-04-01] MEDS: Acetaminophen 325 MG Tablet PO (02:17)
[2019-04-01] MEDS: Cefazolin 1 GM/50 ML BAG IV ×2 (05:09→12:02)
[2019-04-01 05:19] LABS: Absolute Lymphocyte Count 2.61 X10^3/uL (0.83-4.51); Absolute Neutrophil Count 15.7 X10^3/uL (2.0-7.7); Basophil# 0.03 X10^3/uL; Basophil% 0.2 % (0-1); Eosinophil# 0.02 X10^3/uL; Eosinophils% 0.1 % (0-5); Hematocrit 29.2 % (37-47); Lymphocyte # 2.61 X10^3/ul (4.0); Lymphocyte % 13.3 % (19-41); Mean Corp Hgb Conc 34.2 g/dL (32-36); Mean Corpuscular Hgb 31.6 pg (27.0-32.0); Mean Corpuscular Volume 92.4 fL (81-99); Mean Platelet Vol. 9.7 fl (6.2-12.0); Monocyte# 1.04 X10^3/uL; Monocyte% 5.3 % (0-10); NRBC Flagged by Analyzer 0 % (0-5); Neutrophil # 15.65 X10^3/uL (2.7-7.7); Platelet Count 147 K/mm3 (150-450); RBC Distribution Width CV 14.1 % (11.6-14.6); RBC Distribution Width SD 47.3 fl (35.1-43.9); Red Blood Count 3.16 M/mm3 (4.2-5.4); White Blood Count 19.6 K/mm3 (4.4-11.0)
[2019-04-01] MEDS: Lactated Ringers 1,000 ML 100 ML IV (06:21)
--- NOTE | 2019-04-01 08:44 | NURSING ---
observed D[employer]ler UANS complete am assessment and VS. Reviewed and agree with documentation.
--- NOTE | 2019-04-01 10:02 | PCM.PN.OB ---
Patient Problems: Active and Suspected Problems (Last Updated 03/31/19 @ 08:38 by Maricruz Posada MD) 39 weeks gestation of (Acute) Arrest of descent, delivered, current hospitalization (Acute) Subjective: Sangeetha is sore today, but denies significant pain. She has some cramping intermittently. OOB to chair and denies lightheadedness, dizziness, palpitations, chest pain or shortness of breath. Passing flatus. Denies heavy lochia. Objective: AVSS - Physical Exam General: Alert, Oriented x3, Cooperative, No apparent distress HEENT: Atraumatic, Normocephalic Lungs: Clear to auscultation, Normal air movement Cardiovascular: Regular rate, Regular Rhythm, Normal S1, Normal S2 Abdomen: Soft, Non Tender, Non-Distended, Hypoactive Bowel Sounds, - - Fundus firm and nontender, incisional dressing c/d/i Extremities: No Calf Tenderness, - - +1 b/l LE edema Neurological: Neuro grossly intact Psych/Mental Status: Normal Affect, Appropriate, Alert and oriented to time, place, person, mood and affect Vital Signs Temp Pulse Resp BP Pulse Ox 98.8 F 116 H 16 103/54 L 98 04/01/19 07:44 04/01/19 08:33 04/01/19 07:44 04/01/19 07:44 04/01/19 08:00 Oxygen Flow Rate (L/min) 5 Oxygen Delivery Method Room Air Weight: 79.469 kg Body Mass Index (BMI) 34.2 Intake and Output for Last 24 Hours 03/30/19 03/31/19 04/01/19 23:59 23:59 23:59 Intake Total 3657 / 3657 1692 / 1692 Output Total 1950 / 1950 1200 / 1200 Balance 1707 / 1707 492 / 492 Laboratory Tests Past 24 Hrs 03/31/19 03/31/19 03/31/19 03:00 03:00 23:00 WBC RBC Hgb Hct MCV MCH MCHC RDW Std Deviation RDW Coeff of Amber Plt Count MPV Immature Gran % (Auto) Neut % (Auto) Lymph % (Auto) [place] % (Auto) Eos % (Auto) Baso % (Auto) Absolute Neuts (auto) Absolute Lymphs (auto) Nucleated RBC % Sodium 140 Potassium 3.7 Chloride 110 H Carbon Dioxide 22.0 Anion Gap 8 BUN 5 L Creatinine 0.62 Estim Creat Clear Calc 102.23 Est GFR (MDRD) Af Amer 154 Est GFR (MDRD) Non-Af 127 BUN/Creatinine Ratio 8.1 L Glucose 99 Calcium 7.3 L Crossmatch See Detail See Detail 03/31/19 04/01/19 23:00 05:15 WBC 21.9 H 19.6 H RBC 3.26 L 3.16 L Hgb 10.5 L 10.0 L Hct 30.1 L 29.2 L MCV 92.3 92.4 MCH 32.2 H 31.6 MCHC 34.9 34.2 RDW Std Deviation 46.5 H 47.3 H RDW Coeff of Amber 13.8 14.1 Plt Count 158 147 L MPV 10.4 9.7 Immature Gran % (Auto) 0.900 1.100 H Neut % (Auto) 80.9 H 80.0 H Lymph % (Auto) 11.7 L 13.3 L [place] % (Auto) 5.9 5.3 Eos % (Auto) 0.4 0.1 Baso % (Auto) 0.2 0.2 Absolute Neuts (auto) 17.7 H 15.7 H Absolute Lymphs (auto) 2.57 2.61 Nucleated RBC % 0 0 Sodium Potassium Chloride Carbon Dioxide Anion Gap BUN Creatinine Estim Creat Clear Calc Est GFR (MDRD) Af Amer Est GFR (MDRD) Non-Af BUN/Creatinine Ratio Glucose Calcium Crossmatch Medical Necessity - Tobacco Use Smoking Status: Never smoker Assessment/Plan All Active Problems (Last Updated 03/31/19 @ 08:38 by Maricruz Posada MD) 39 weeks gestation of (Acute) Arrest of descent, delivered, current hospitalization (Acute) This is a 23 year-old, G [1], P 1 POD#1 s/p PLTCS with hemorrhage s/p 2u PRBC -Doing well this morning -Vitals stable and tachycardia resolving. Anticipate resolution with continued improvement of third spacing. -Rpt CBC tomorrow am -Routine postop care
[2019-04-01] MEDS: Senna/Docusate Sodium 1 Tablet PO (10:16)
[2019-04-01] MEDS: Fluticasone 0.05% 1 SPRAY NASAL.SRY 2 SPRAY NASAL (10:17)
[2019-04-01] MEDS: 0.9% Saline Lock 10 ML Syringe 5 ML IV ×2 (12:00→18:03)
[2019-04-01] MEDS: Ketorolac 30 MG/ML Syringe IV ×2 (12:01→18:03)
[2019-04-01] MEDS: Prenatal Vits Tablet 1 TABLET PO (12:11)
[2019-04-02] MEDS: 0.9% Saline Lock 10 ML Syringe 5 ML IV ×2 (00:15→05:54)
[2019-04-02] MEDS: Acetaminophen 325 MG Tablet PO ×4 (00:23→22:50)
--- NOTE | 2019-04-02 00:36 | NURSING ---
Pt c/o burning when flushing IV sites x2 prior to giving IV toradol. Pt refused IV toradol dose and PO tylenol was given. Instructed pt to call if wanting IV toradol within 1 hour of ordered dose. IV sites visualized, no redness or edema noted. IV sites left in place, will continue to monitor overnight.
[2019-04-02 02:22] VITALS: BP 96/48; PULSE 116; RESP 16; TEMP 37.3; O2SAT 96
[2019-04-02] MEDS: Ketorolac 30 MG/ML Syringe IV (05:54)
--- NOTE | 2019-04-02 06:08 | PCM.PN.OB ---
Patient Problems: Active and Suspected Problems (Last Updated 03/31/19 @ 08:38 by Maricruz Posada MD) 39 weeks gestation of (Acute) Arrest of descent, delivered, current hospitalization (Acute) Subjective: No issues overnight. No recent flatus or bowel movement. Nausea overnight, now resolved. No vomiting. Denies lightheadedness, palpitations, shortness of breath. Denies heavy lochia. nursing better. Objective: AVSS - Physical Exam General: Alert, Oriented x3, Cooperative, No apparent distress HEENT: Atraumatic, Normocephalic Lungs: Normal air movement Cardiovascular: Regular rate, Regular Rhythm, Normal S1, Normal S2 Abdomen: Soft, Non Tender, Non-Distended, Hypoactive Bowel Sounds, - - Fundus firm and nontender, lochia scant Extremities: No Calf Tenderness, - - trace LE edema Neurological: Neuro grossly intact Psych/Mental Status: Normal Affect, Appropriate, Alert and oriented to time, place, person, mood and affect Vital Signs Temp Pulse Resp BP Pulse Ox 99.1 F 116 H 16 96/48 L 96 04/02/19 02:22 04/02/19 02:22 04/02/19 02:22 04/02/19 02:22 04/02/19 02:22 Oxygen Flow Rate (L/min) 5 Oxygen Delivery Method Room Air Weight: 79.469 kg Body Mass Index (BMI) 34.2 Intake and Output for Last 24 Hours 03/31/19 04/01/19 04/02/19 23:59 23:59 23:59 Intake Total 3657 / 3657 1692 / 1692 Output Total 1950 / 1950 2950 / 2950 Balance 1707 / 1707 -1258 / -1258 Medical Necessity - Tobacco Use Smoking Status: Never smoker Assessment/Plan All Active Problems (Last Updated 03/31/19 @ 08:38 by Maricruz Posada MD) 39 weeks gestation of (Acute) Arrest of descent, delivered, current hospitalization (Acute) This is a 23 year-old, G [1], P 1 POD#2 s/p PLTCS with hemorrhage s/p 2u PRBC -Rpt CBC this am -Routine postop care -A positive
[2019-04-02] MEDS: Senna/Docusate Sodium 1 Tablet PO (06:12)
--- NOTE | 2019-04-02 06:15 | DCINST_ITS ---
Discharge Diet: No Restrictions Discharge Activity: Return to Normal Activity, May not drive while taking narcotic pain medications., May Shower May resume sexual activity in: 4-6 weeks Lifting Restrictions: 10 lb Call your doctor if your incision/area has: Continuous Slow Oozing, Sudden Increased Bleeding, Increased Pain/ Swelling, Increased Redness, Foul Smelling Discharge Suture Line Care: Avoid Pulling/Pushing Remove Dressing in (days):: 2 Cleanse incision/area with: Soap & Water Additional Instructions: If you experience any of the following, contact your healthcare provider. * Bleeding that soaks a pad every hour for 2 hours * Fever 100.4 or higher * Unrelieved incision or abdominal pain * Swelling, redness, discharge or bleeding from your incision or episiotomy site * Your incision begins to separate * Problems urinating (including inability to urinate or burning while urinating). * Visual changes * Severe headache * Flu-like symptoms * Pain or redness in one of both of your breasts * Pain, warmth, tenderness or swelling in your legs, especially the calf area * Frequent nausea and vomiting * Symptoms of depression or anxiety If you experience any of the following, call 911 or go to the nearest Emergency Room. * Chest pain * Problems breathing * Seizure activity * Partial or complete paralysis of a body part, slurred speech, weakness or drooping of the face, or a sudden inability to walk or hold your balance Allergies/Adverse Reactions: Allergies ibuprofen Adverse Reaction (Verified 03/31/19 00:18) Upset Stomach Medications to take at Discharge Prenatabs FA 1 tab PO DAILY 02/17/19 Cholecalciferol (Vitamin D3) [Vitamin D3] 4,000 unit PO DAILY 03/29/19 Fluticasone 0.05% [Flonase Nasal [place]] 2 spray NASAL DAILY 03/29/19 Ibuprofen 600 mg PO TID PRN #30 tab 04/02/19 Oxycodone [Oxyir] 1 - 2 tab PO Q6H PRN PRN 7 Days #10 tab 04/02/19 Senna/Docusate Sodium [Senokot-S] 1 - 2 tab PO DAILY PRN #60 tab 04/02/19 Ferrous Sulfate 325 mg PO BID #60 tab 04/03/19 The following prescriptions were given: Ferrous Sulfate 325 mg PO BID #60 tab Transmission Status: Pending to [facility]/pharmacy #[id number] Ibuprofen 600 mg PO TID PRN #30 tab PRN Reason: Pain Transmission Status: Received by [facility]pharmacy #[id number] Oxycodone [Oxyir] 1 - 2 tab PO Q6H PRN PRN 7 Days #10 tab PRN Reason: Mod-Severe Pain (4-05/24) Transmission Status: Received by [facility]acy [facility][id number] Senna/Docusate Sodium [Senokot-S] 1 - 2 tab PO DAILY PRN #60 tab PRN Reason: Constipation Transmission Status: Received by [facility]acy #[id number] Follow-Up: Call to make an appointment with your doctor for an incision check in 1-2 weeks. You will also need a 6 week post- follow up appointment. Test results from this visit will be discussed in further detail at your follow- up appointment, if applicable. Please Follow Up With: Maricruz Posada MD When: 1-2 weeks
[2019-04-02 06:48] LABS: Absolute Lymphocyte Count 2.18 X10^3/uL (0.83-4.51); Absolute Neutrophil Count 17.4 X10^3/uL (2.0-7.7); Basophil# 0.05 X10^3/uL; Basophil% 0.2 % (0-1); Eosinophil# 0.03 X10^3/uL; Eosinophils% 0.1 % (0-5); Hematocrit 27.1 % (37-47); Hemoglobin 9.3 g/dL (12.0-15.0); Lymphocyte # 2.18 X10^3/ul (4.0); Lymphocyte % 10.3 % (19-41); Mean Corp Hgb Conc 34.3 g/dL (32-36); Mean Corpuscular Hgb 32.3 pg (27.0-32.0); Mean Corpuscular Volume 94.1 fL (81-99); Mean Platelet Vol. 9.8 fl (6.2-12.0); Monocyte# 1.06 X10^3/uL; NRBC Flagged by Analyzer 0 % (0-5); Neutrophil # 17.38 X10^3/uL (2.7-7.7); Neutrophil % 81.9 % (47-70); Platelet Count 178 K/mm3 (150-450); RBC Distribution Width CV 14.4 % (11.6-14.6); RBC Distribution Width SD 49.6 fl (35.1-43.9); Red Blood Count 2.88 M/mm3 (4.2-5.4); White Blood Count 21.2 K/mm3 (4.4-11.0)
[2019-04-02 09:03] VITALS: BP 99/53; PULSE 102; RESP 18; TEMP 36.6; O2SAT 99
[2019-04-02] MEDS: Fluticasone 0.05% 1 SPRAY NASAL.SRY 2 SPRAY NASAL (10:19)
[2019-04-02] MEDS: Prenatal Vits Tablet 1 TABLET PO (13:06)
[2019-04-02 15:00] VITALS: BP 103/54; PULSE 100; RESP 18; TEMP 36.1
[2019-04-02 20:30] VITALS: BP 109/62; PULSE 99; RESP 16; TEMP 36.3; O2SAT 97
[2019-04-03 01:30] VITALS: BP 105/68; PULSE 100; RESP 16; TEMP 36.2; O2SAT 97
[2019-04-03] MEDS: Acetaminophen 325 MG Tablet PO ×2 (03:41→08:53)
--- NOTE | 2019-04-03 08:38 | PCM.PN.OB ---
Patient Problems: Active and Suspected Problems (Last Updated 03/31/19 @ 08:38 by Maricruz Posada MD) 39 weeks gestation of (Acute) Arrest of descent, delivered, current hospitalization (Acute) Subjective: Passing flatus. Reports loose stool x 4 overnight. Denies foul stool. Denies abdominal cramping, fever, chills. She feels well today. - Physical Exam General: Alert, Oriented x3, Cooperative, No apparent distress HEENT: Atraumatic, Normocephalic Lungs: Clear to auscultation, Normal air movement Cardiovascular: Regular rate, Regular Rhythm, Normal S1, Normal S2 Abdomen: Bowel Sounds Present, Soft, Non Tender, Non-Distended, - - fundus firm and nontender, incisional dressing c/d/i Extremities: No Calf Tenderness, - - trace LE edema Neurological: Neuro grossly intact Psych/Mental Status: Normal Affect, Appropriate, Alert and oriented to time, place, person, mood and affect Vital Signs Temp Pulse Resp BP Pulse Ox 97.2 F L 100 16 105/68 97 04/03/19 01:30 04/03/19 01:30 04/03/19 01:30 04/03/19 01:30 04/03/19 01:30 Oxygen Flow Rate (L/min) 5 Oxygen Delivery Method Room Air Weight: 79.469 kg Body Mass Index (BMI) 34.2 Intake and Output for Last 24 Hours 04/01/19 04/02/19 04/03/19 23:59 23:59 23:59 Intake Total 1692 / 1692 Output Total 2950 / 2950 Balance -1258 / -1258 Medical Necessity - Tobacco Use Smoking Status: Never smoker Assessment/Plan All Active Problems (Last Updated 03/31/19 @ 08:38 by Maricruz Posada MD) 39 weeks gestation of (Acute) Arrest of descent, delivered, current hospitalization (Acute) This is a 23 year-old, G [1], P 1 POD#3 s/p PLTCS with hemorrhage s/p 2u PRBC - A positive - H/H stable - No evidence of anemia - Plan for d/c home today
[2019-04-03] MEDS: Fluticasone 0.05% 1 SPRAY NASAL.SRY 2 SPRAY NASAL (08:54)
[2019-04-03 10:00] VITALS: BP 105/58; PULSE 92; RESP 18; TEMP 36.3
--- NOTE | 2019-04-28 03:53 | DS.PCM_ITS ---
Discharge Date and Diagnosis Date of Admission: 03/31/19 Date of Discharge: 04/03/19 Hospital Course and Treatment Operations: - - Primary low transverse section Procedures: Blood transfusion Summary of Care Provided: The patient is a 23 year old F 1 admitted in labor. She progressed to FD and pushed for 3 hours with no descent. She underwent section complicated by hemorrhage and received 2u prbc. Her postoperative course was otherwise unremarkable. She was out of bed, ambulating, voiding. She was discharged to home on postoperative day #2. - Physical Exam Vital Signs Temp Pulse Resp BP Pulse Ox 97.3 F L 92 18 105/58 L 97 04/03/19 10:00 04/03/19 10:00 04/03/19 10:00 04/03/19 10:00 04/03/19 01:30 Oxygen Flow Rate (L/min) 5 Oxygen Delivery Method Room Air Weight: 79.469 kg Body Mass Index (BMI) 34.2 Discharge Diet: No Restrictions Discharge Activity: Return to Normal Activity, May not drive while taking narcotic pain medications., May Shower May resume sexual activity in: 4-6 weeks Call your doctor if your incision/area has: Continuous Slow Oozing, Sudden Increased Bleeding, Increased Pain/ Swelling, Increased Redness, Foul Smelling Discharge Suture Line Care: Avoid Pulling/Pushing Remove Dressing in (days):: 2 Cleanse incision/area with: Soap & Water Home Medications: Medications to take at Discharge Prenatabs FA 1 tab PO DAILY 02/17/19 Cholecalciferol (Vitamin D3) [Vitamin D3] 4,000 unit PO DAILY 03/29/19 Fluticasone 0.05% [Flonase Nasal [place]] 2 spray NASAL DAILY 03/29/19 Ibuprofen 600 mg PO TID PRN #30 tab 04/02/19 Senna/Docusate Sodium [Senokot-S] 1 - 2 tab PO DAILY PRN #60 tab 04/02/19 Ferrous Sulfate 325 mg PO BID #60 tab 04/03/19 Following Prescrptions Were Given to Patient: Ferrous Sulfate 325 mg PO BID #60 tab Transmission Status: Received by [id number] Ibuprofen 600 mg PO TID PRN #30 tab PRN Reason: Pain Transmission Status: Received by [id number] Senna/Docusate Sodium [Senokot-S] 1 - 2 tab PO DAILY PRN #60 tab PRN Reason: Constipation Transmission Status: Received by [facility]pharmacy #[id number] Please Follow Up With: Maricruz Posada MD When: 1-2 weeks Disposition: Home Medical Necessity - Tobacco Use Smoking Status: Never smoker Meaningful Use Info Meaningful Use Diagnoses (Choose all that apply): None applicable
== END 2019-04-03 11:50 | disposition home or self-care (01) | DRG 787 ==
LOC: WPOUT 02:46
PROVIDERS: Admitting Provider Obstetrics & Gynecology; Visit Provider Obstetrics & Gynecology
DX: O76 Abnormality in fetal heart rate and rhythm complicating labor and delivery (principal); O72.2 Delayed and secondary postpartum hemorrhage; O69.81X0 Labor and delivery complicated by cord around neck, without compression, not applicable or unspecified; Z3A.39 39 weeks gestation of pregnancy; Z37.0 Single live birth
CPT/HCPCS: 36415; 59025; 59050; 80048; 85025; 86850; 86900; 86901; 86920; 99218; J7120; P9016; A4216; G0378; J2405

== ENCOUNTER → 2019-07-20 09:47 | Outpatient (CLI) | payer OTHER, SELFPAY ==
[2019-03-31 00:05] VITALS: BMI 34.2
== END ==
PROVIDERS: Family Provider Family Medicine; PCP Family Medicine; Visit Provider Family Medicine
DX: J02.9 Acute pharyngitis, unspecified (principal)
CPT/HCPCS: 87070

== ENCOUNTER → 2019-10-19 | Outpatient (CLI) | payer OTHER, SELFPAY ==
[2019-03-31 00:05] VITALS: BMI 34.2
[2019-10-19 11:05] LABS: Absolute Lymphocyte Count 3.22 X10^3/uL (0.83-4.51); Absolute Neutrophil Count 4.5 X10^3/uL (2.0-7.7); Basophil# 0.09 X10^3/uL; Eosinophil# 0.46 X10^3/uL; Eosinophils% 5.1 % (0-5); Hematocrit 42.9 % (37-47); Hemoglobin 14.2 g/dL (12.0-15.0); Lymphocyte # 3.22 X10^3/ul (4.0); Lymphocyte % 35.9 % (19-41); Mean Corp Hgb Conc 33.1 g/dL (32-36); Mean Corpuscular Hgb 30.1 pg (27.0-32.0); Mean Corpuscular Volume 91.1 fL (81-99); Mean Platelet Vol. 10.4 fl (6.2-12.0); Monocyte# 0.68 X10^3/uL; Monocyte% 7.6 % (0-10); NRBC Flagged by Analyzer 0 % (0-5); Neutrophil % 50.3 % (47-70); Platelet Count 305 K/mm3 (150-450); RBC Distribution Width CV 12.6 % (11.6-14.6); RBC Distribution Width SD 42.1 fl (35.1-43.9); Red Blood Count 4.71 M/mm3 (4.2-5.4)
[2019-10-19 11:21] LABS: Vitamin D,25 Hydroxy 30.7 ng/mL
[2019-10-19 11:27] LABS: T4 Free Direct 0.98 ng/dL (0.76-1.46); Thyroid Stim Hormone (TSH) 0.95 uIU/mL (0.358-3.74)
== END | disposition home or self-care (01) ==
LOC: BFHLAB 08:02
PROVIDERS: PCP Family Medicine; Visit Provider Family Medicine
DX: Z00.00 Encounter for general adult medical examination without abnormal findings (principal); E55.9 Vitamin D deficiency, unspecified; R53.83 Other fatigue
CPT/HCPCS: 36415; 82306; 84439; 84443; 85025

== ENCOUNTER → 2020-04-15 | Outpatient (CLI) | payer OTHER, SELFPAY ==
[2019-03-31 00:05] VITALS: BMI 34.2
[2020-04-15 18:06] LABS: Absolute Lymphocyte Count 3.51 X10^3/uL (0.83-4.51); Absolute Neutrophil Count 6.8 X10^3/uL (2.0-7.7); Basophil# 0.07 X10^3/uL; Basophil% 0.6 % (0-1); Eosinophils% 0.9 % (0-5); Hematocrit 38.7 % (37-47); Hemoglobin 12.6 g/dL (12.0-15.0); Lymphocyte # 3.51 X10^3/ul (4.0); Lymphocyte % 31.3 % (19-41); Mean Corp Hgb Conc 32.6 g/dL (32-36); Mean Corpuscular Hgb 30.2 pg (27.0-32.0); Mean Corpuscular Volume 92.8 fL (81-99); Mean Platelet Vol. 9.9 fl (6.2-12.0); Monocyte# 0.73 X10^3/uL; Monocyte% 6.5 % (0-10); NRBC Flagged by Analyzer 0 % (0-5); Neutrophil # 6.77 X10^3/uL (2.7-7.7); Neutrophil % 60.4 % (47-70); Platelet Count 307 K/mm3 (150-450); RBC Distribution Width CV 11.7 % (11.6-14.6); RBC Distribution Width SD 39.8 fl (35.1-43.9); Red Blood Count 4.17 M/mm3 (4.2-5.4); White Blood Count 11.2 K/mm3 (4.4-11.0)
[2020-04-15 18:20] LABS: Color, Urine Yellow (Yellow); Glucose, Dipstick Normal (Normal); Ketone-Dipstick Negative (Negative); Leukocyte Esterase-Dipstick Negative /ul (Negative); Nitrite-Dipstick Negative (Negative); Occult Blood-Urine Negative /ul (Negative); Protein-Dipstick Negative (Negative); Urine Bilirubin Dipstick Negative (Negative); Urine Clarity Clear (Clear); Urine Urobilinogen Normal (Normal); Urine pH 6.5 (5.0 - 8.0)
[2020-04-15 18:43] LABS: Amphetamine Urine VISTA NEGATIVE (<1000 ng/mL); Barbiturate Urine VISTA NEGATIVE (< 200 ng/mL); Benzodiazepine Urine VISTA NEGATIVE (< 200 ng/mL); Cocaine Urine VISTA NEGATIVE (< 300 ng/mL); Ecstacy Urine VISTA NEGATIVE (< 500 ng/mL); Methadone Urine VISTA NEGATIVE (< 300 ng/mL); PCP Urine VISTA NEGATIVE (< 25 ng/mL); THC Urine VISTA NEGATIVE (< 50 ng/mL); Vista UDS pH Range 6
[2020-04-15 18:55] LABS: Thyroid Stim Hormone (TSH) 2.35 uIU/mL (0.358-3.74)
[2020-04-16 09:23] LABS: HIV - WCH Non-Reactive (Nonreactive); Hepatitis B Surface Antigen Non-Reactive (Nonreactive); Hepatitis C Antibody Non-Reactive (Nonreactive); Rubella IgG 316.2 IU/mL
[2020-04-17 06:29] LABS: Prenatal RPR NONREACTIVE (NONREACTIVE)
[2020-04-17 20:07] LABS: Chlamydia By Nucleic Acid AMP Negative (Negative)
[2020-04-17 20:48] LABS: Gonococcus By Nucleic Acid AMP Negative (Negative)
== END | disposition home or self-care (01) ==
PROVIDERS: PCP Family Medicine; Referring Provider Obstetrics & Gynecology; Visit Provider Obstetrics & Gynecology
DX: Z34.81 Encounter for supervision of other normal pregnancy, first trimester (principal)
CPT/HCPCS: 80307; 81002; 84443; 85025; 86703; 86762; 86803; 87340; 87491; 87591

== ENCOUNTER → 2020-08-11 11:32 | Outpatient (CLI) | payer OTHER, SELFPAY ==
[2019-03-31 00:05] VITALS: BMI 34.2
[2020-08-11 12:15] LABS: Glucose Challenge Gest 1H 50g 88 mg/dL (70-140); Hematocrit 34.9 % (37-47); Hemoglobin 11.4 g/dL (12.0-15.0); Mean Corp Hgb Conc 32.7 g/dL (32-36); Mean Corpuscular Hgb 31.2 pg (27.0-32.0); Mean Corpuscular Volume 95.6 fL (81-99); Mean Platelet Vol. 9.9 fl (6.2-12.0); Platelet Count 251 K/mm3 (150-450); RBC Distribution Width CV 12.2 % (11.6-14.6); RBC Distribution Width SD 43.1 fl (35.1-43.9); Red Blood Count 3.65 M/mm3 (4.2-5.4); White Blood Count 10.9 K/mm3 (4.4-11.0)
== END ==
PROVIDERS: PCP Family Medicine; Visit Provider Obstetrics & Gynecology
DX: Z34.83 Encounter for supervision of other normal pregnancy, third trimester (principal)
CPT/HCPCS: 36415; 82950; 85027

== ENCOUNTER → 2020-10-20 | Outpatient (CLI) | payer OTHER, SELFPAY ==
[2019-03-31 00:05] VITALS: BMI 34.2
== END | disposition home or self-care (01) ==
LOC: LABSPEC 15:31
PROVIDERS: PCP Family Medicine; Visit Provider Obstetrics & Gynecology
DX: Z36.85 Encounter for antenatal screening for Streptococcus B (principal)
CPT/HCPCS: 87081

== ENCOUNTER → 2020-11-04 | Outpatient (CLI) | payer OTHER, SELFPAY ==
[2019-03-31 00:05] VITALS: BMI 34.2
== END | disposition home or self-care (01) ==
PROVIDERS: PCP Family Medicine; Visit Provider Obstetrics & Gynecology
DX: Z03.818 Encounter for observation for suspected exposure to other biological agents ruled out (principal)
CPT/HCPCS: 87635; U0002; U0003

== ENCOUNTER 2020-11-10 05:05 | Inpatient (IN) | payer OTHER, SELFPAY ==
[2019-03-31 00:05] VITALS: BMI 34.2
[2020-11-10] VITALS (20 sets, daily range): BP systolic 93–110; BP diastolic 42–72; PULSE 62–78; RESP 14–18; TEMP 36–36.6; O2SAT 96–98; BMI 33.7
[2020-11-10] MEDS: Lactated Ringers 1,000 ML 999 ML IV (05:45)
[2020-11-10] MEDS: Acetaminophen 500 MG Tablet 1000 MG PO ×4 (05:58→23:18)
[2020-11-10 06:12] LABS: Absolute Lymphocyte Count 3.44 X10^3/uL (0.83-4.51); Absolute Neutrophil Count 7.2 X10^3/uL (2.0-7.7); Basophil# 0.06 X10^3/uL; Basophil% 0.5 % (0-1); Eosinophil# 0.06 X10^3/uL; Eosinophils% 0.5 % (0-5); Hematocrit 35.8 % (37-47); Hemoglobin 11.8 g/dL (12.0-15.0); Lymphocyte # 3.44 X10^3/ul (4.0); Lymphocyte % 29.6 % (19-41); Mean Corpuscular Hgb 30.3 pg (27.0-32.0); Mean Corpuscular Volume 91.8 fL (81-99); Mean Platelet Vol. 10.5 fl (6.2-12.0); Monocyte# 0.71 X10^3/uL; Monocyte% 6.1 % (0-10); NRBC Flagged by Analyzer 0 % (0-5); Neutrophil # 7.16 X10^3/uL (2.7-7.7); Neutrophil % 61.7 % (47-70); Platelet Count 228 K/mm3 (150-450); RBC Distribution Width SD 42.7 fl (35.1-43.9); White Blood Count 11.6 K/mm3 (4.4-11.0)
[2020-11-10] MEDS: Lactated Ringers 1,000 ML 150 ML IV (06:46)
[2020-11-10] MEDS: Sodium Citrate/Citric Acid 30 ML UDC PO (07:12)
[2020-11-10] MEDS: Cefazolin 2 GM in 0.9% Normal Saline 100 ML IV (07:30)
--- NOTE | 2020-11-10 08:21 | HP.PCM_ITS ---
History and Physical Date of Admission: 11/10/20 Chief complaint: Repeat section History of present illness: 25-year-old G2, P1 at 39 weeks and 1 day with SHU: 11/16/2020 by LMP arrives for repeat section. Denies headache, visual changes, chest pain, shortness of breath, nausea vomiting, right upper quadrant pain. Patient states good movement complicated by history of section, history of hemorrhage, marginal previa now resolved Obstetric history: G1: 39-week primary section for failure to progress female 03/31/2019, complicated by hemorrhage G2: Current Past medical history: Depression Medications: vitamin Past surgical history: History of section, melatonin excision Allergies: No known drug allergies Family history: Denies history DVT or PE Social history: Denies smoking, alcohol use, drug use Review of systems: Besides above pertinent positives for review of systems performed found to be negative Physical exam: Vital Signs Temp Pulse Resp BP Pulse Ox 11/10/20 05:30 97.6 F L 78 17 105/63 96 General: Normal-appearing no acute distress HEENT: Normocephalic atraumatic no cervical adenopathy Cardiac/respiratory: No use of accessory muscle, nonlabored breathing Abdomen: Soft, nontender, gravid Extremities: No peripheral edema normal peripheral pulses Psych: Normal affect normal demeanor nonpressured speech Mom's Labs & Results 11/10/20 11/10/20 05:40 05:40 WBC 11.6 H RBC 3.90 L Hgb 11.8 L Hct 35.8 L MCV 91.8 MCH 30.3 MCHC 33.0 RDW Std Deviation 42.7 RDW Coeff of Amber 13.0 Plt Count 228 MPV 10.5 Immature Gran % (Auto) 1.600 H Neut % (Auto) 61.7 Lymph % (Auto) 29.6 [place] % (Auto) 6.1 Eos % (Auto) 0.5 Baso % (Auto) 0.5 Absolute Neuts (auto) 7.2 Absolute Lymphs (auto) 3.44 Nucleated RBC % 0 Blood Type A POSITIVE Antibody Screen NEGATIVE Labs Blood Type: A RH: POSITIVE RPR/VDRL/Syphilis Nonreactive Rubella status Immune HbSAg Negative Date Done: 04/15/20 Chlamydia Negative Gonorrhea Negative HIV/AIDS Non-Reactive Group B Strep: Negative Assessment plan: 25 at 39 weeks and 1 day for repeat section -Admit L&D -CEFM -2 g Ancef -Routine orders -Anesthesia to see
--- NOTE | 2020-11-10 08:25 | OP.PCM_ITS ---
Delivery phone operator: Priscilla Aquino Date of Procedure: 11/10/20 Pre-Operative Diagnosis: Term, history of section Post-Operative Diagnosis: Term, history of section Description of Procedure: Procedure: Repeat section Via Pfannenstiel incision Surgeon: Lucas Reynoso MD EBL: 600 cc IV fluids: 1000 cc Urine output: 200 cc Anesthesia: Spinal Complications: None Specimen: None Findings: Male in vertex position Apgars 8/9. Normal uterus, tubes, and ovaries. Moderate amount of adhesions specifically vesicouterine adhesions. Consent: Patient with a history of section desires repeat section Via Pfannenstiel incision. Patient understands the risk of the procedure include but are not limited to visceral or vascular injury, prolonged hospitalization, blood loss need for transfusion, reoperation. Patient states understanding wish to proceed. All questions were answered and consent was signed. Procedure: Patient was brought back to the OR where spinal anesthesia found be adequate. 2 g of Ancef were given for infection prophylaxis. Patient was prepared and draped in a dorsal supine position with leftward tilt. Incision was carried down to the fascia with a scalpel. The fascia was excised and extended laterally. Inferior aspect of the fascia was grasped with a clamp and the underlying rectus and pyramidalis muscle were dissected off sharply. In a similar fashion the superior aspect of the fascia was grasped with a Andrae clamp and the underlying rectus muscle was dissected off sharply. Rectus muscles dissected the midline down to the level pubic symphysis. Preperitoneal fatty tissue was noted and entered bluntly. Peritoneum was extended superiorly and inferiorly with good visualization of bladder. Bladder blade was inserted and vesicouterine peritoneum was identified. Low transverse hysterotomy was made. Hand was placed into the hysterotomy and gentle fundal pressure was applied once the bladder blade was removed and the head was brought into the incision. Head and shoulders were delivered with ease. Cord was cut and clamped. Baby handed off to nursing. Placenta was delivered via cord traction and fundal massage. IV oxytocin was initiated in order to facilitate uterine contractions. Uterus was exteriorized and wiped out with dry laparotomy sponge in order to remove remaining placental membranes. Uterus was closed continuous running fashion. Second layer was performed. Good hemostasis was noted. Uterus placed back into the abdominal cavity and good hemostasis was noted. Rectus muscle was reapproximated with horizontal mattress sutures. Fascia was closed in continuous running fashion. Skin was closed in a subcuticular fashion. All counts correct x2. Patient tolerated procedure well was brought to recovery in stable condition.
--- NOTE | 2020-11-10 08:29 | DCINST_ITS ---
Discharge Diet: No Restrictions Discharge Activity: Return to Normal Activity, May Drive, May not drive while taking narcotic pain medications., May Shower, - - No tub baths for 2 weeks May resume sexual activity in: 4-6 weeks Lifting Restrictions: No lifting over 25 pounds for 3 weeks Call your doctor if your incision/area has: Continuous Slow Oozing, Foul Smelling Discharge Call your doctor if you observe: Fever of 101 or Higher, Shortness of breath, Chest pain Additional Instructions: If you experience any of the following, contact your healthcare provider. * Bleeding that soaks a pad every hour for 2 hours * Fever 100.4 or higher * Unrelieved incision or abdominal pain * Swelling, redness, discharge or bleeding from your incision or episiotomy site * Your incision begins to separate * Problems urinating (including inability to urinate or burning while urinating). * Visual changes * Severe headache * Flu-like symptoms * Pain or redness in one of both of your breasts * Pain, warmth, tenderness or swelling in your legs, especially the calf area * Frequent nausea and vomiting * Symptoms of depression or anxiety If you experience any of the following, call 911 or go to the nearest Emergency Room. * Chest pain * Problems breathing * Seizure activity * Partial or complete paralysis of a body part, slurred speech, weakness or drooping of the face, or a sudden inability to walk or hold your balance Allergies/Adverse Reactions: Allergies ibuprofen Adverse Reaction (Verified 03/31/19 00:18) Upset Stomach Medications to take at Discharge Vits [Prenatabs FA] 1 tablet PO DAILY 11/10/20 Oxycodone [Oxyir] 5 mg PO Q6H PRN PRN 4 Days #16 tablet 11/11/20 The following prescriptions were given: Oxycodone [Oxyir] 5 mg PO Q6H PRN PRN 4 Days #16 tablet PRN Reason: Pain Score 6-10 Transmission Status: Sent to [facility] Follow-Up: Call to make an appointment with your doctor for an incision check in 1-2 weeks. You will also need a 6 week post- follow up appointment. Test results from this visit will be discussed in further detail at your follow- up appointment, if applicable. Please Follow Up With: Lucas Reynoso MD When: 2 weeks Primary Care Physician: Robbin Perez DO [Primary Care Provider] -
[2020-11-10] MEDS: Oxytocin 30 units/NS 500 ml 30 UNITS/500 ML IV.SOLN 167 UNITS IV (09:06)
[2020-11-10] MEDS: Ketorolac 30 MG/ML Syringe IV ×3 (09:53→21:33)
[2020-11-10] MEDS: Lactated Ringers 1,000 ML 100 ML IV (12:19)
[2020-11-10] MEDS: 0.9% Saline Lock 10 ML Syringe IV ×2 (15:43→21:34)
[2020-11-10] MEDS: Enoxaparin 40 MG/0.4 ML Syringe SC (20:14)
[2020-11-11] MEDS: Ketorolac 30 MG/ML Syringe IV (03:49)
[2020-11-11] MEDS: 0.9% Saline Lock 10 ML Syringe IV (03:50)
[2020-11-11 05:20] VITALS: BP 92/42; PULSE 75; RESP 18; TEMP 36.3
[2020-11-11 05:41] LABS: Hematocrit 29.7 % (37-47); Hemoglobin 9.6 g/dL (12.0-15.0); Mean Corp Hgb Conc 32.3 g/dL (32-36); Mean Corpuscular Hgb 30.8 pg (27.0-32.0); Mean Corpuscular Volume 95.2 fL (81-99); Mean Platelet Vol. 10.2 fl (6.2-12.0); Platelet Count 202 K/mm3 (150-450); RBC Distribution Width CV 13.3 % (11.6-14.6); RBC Distribution Width SD 46.1 fl (35.1-43.9); Red Blood Count 3.12 M/mm3 (4.2-5.4); White Blood Count 15.8 K/mm3 (4.4-11.0)
[2020-11-11] MEDS: Acetaminophen 500 MG Tablet 1000 MG PO (06:12)
--- NOTE | 2020-11-11 08:27 | PN.OBGYN_ITS ---
Subjective: No overnight complaints. Pain well controlled. - Physical Exam Vitals/I&O's: Vital Signs Temp Pulse Resp BP Pulse Ox 97.3 F L 75 18 92/42 L 98 11/11/20 05:20 11/11/20 05:20 11/11/20 05:20 11/11/20 05:20 11/10/20 17:45 Oxygen Delivery Method Room Air Weight: 172 lb 12.8 oz Body Mass Index (BMI) 33.7 Intake and Output for Last 24 Hours 11/09/20 11/10/20 11/11/20 23:59 23:59 23:59 Intake Total 4461.67 / 4461.67 Output Total 2500 / 2500 Balance 1961.67 / 1961.67 General: Alert, Oriented x3, Cooperative, No apparent distress HEENT: Atraumatic, Normocephalic Oral: Moist Mucosa Neck: Supple Abdomen: Soft, - - Appropriately tender. Bandage clean dry and intact Extremities: No clubbing, No cyanosis, No edema Neurological: Neuro grossly intact Psych/Mental Status: Normal Affect, Appropriate, Alert and oriented to time, place, person, mood and affect Laboratory Results 11/11/20 05:30: WBC 15.8 H, RBC 3.12 L, Hgb 9.6 L, Hct 29.7 L, MCV 95.2, MCH 30.8, MCHC 32.3, RDW Std Deviation 46.1 H, RDW Coeff of Amber 13.3, Plt Count 202, MPV 10.2 Current Medications Acetaminophen (Acetaminophen 500 Mg Tablet) 1,000 mg PO Q6 [facility] Last Admin: 11/11/20 06:12 Dose: 1,000 mg Documented by: Bisacodyl (Bisacodyl 10 Mg Suppository) 10 mg RC UD PRN PRN Reason: If no BM Diphenhydramine HCl (Diphenhydramine 25 Mg Capsule) 25 mg PO Q6H PRN PRN PRN Reason: ITCHING Stop: 11/11/20 08:44 Enoxaparin Sodium (Enoxaparin 40 Mg/0.4 Ml Syringe) 40 mg SC DAILY@1999 [facility] Last Admin: 11/10/20 20:14 Dose: 40 mg Documented by: Hydrocortisone (Hydrocortisone 2.5% Crm) 1 applic TOPICAL TID PRN PRN; Protocol PRN Reason: Discomfort Ibuprofen (Ibuprofen 600 Mg Tablet) 600 mg PO Q6H NIKKO Nalbuphine HCl (Nalbuphine 10 Mg/Ml Ampul) 5 mg IV Q3H PRN PRN PRN Reason: ITCHING Stop: 11/11/20 08:44 Naloxone HCl (Naloxone 0.4 Mg/Ml Syringe) 0.02 mg IV Q1M PRN PRN Reason: RR <10 and pt unresponsive Ondansetron HCl (Ondansetron 4 Mg/2 Ml Vial) 4 mg IV Q4H PRN PRN PRN Reason: Nausea Oxycodone HCl (Oxycodone 5 Mg Tablet) 5 - 10 mg PO Q4H PRN PRN PRN Reason: Pain Score 4-10 Prochlorperazine Edisylate (Prochlorperazine 10 Mg/2 Ml Vial) 10 mg IV Q6H PRN PRN PRN Reason: NAUSEA Senna/Docusate Sodium (Senna/Docusate Sodium 1 Tablet) 0 tablet PO DAILY NIKKO Last Admin: 11/10/20 10:01 Dose: Not Given Documented by: Simethicone (Simethicone 80 Mg Tablet) 80 mg PO PCHS PRN PRN Reason: Indigestion/stomach pain Sodium Chloride (0.9% Saline Lock 10 Ml Syringe) 5 - 15 ml IV UD PRN PRN Reason: SALINE FLUSH Last Admin: 11/11/20 03:50 Dose: 10 ml Documented by: Medical Necessity - Tobacco Use Smoking Status: Former smoker Assessment/Plan All Active Problems (Last Updated 03/31/19 @ 08:[address] Maricruz Kuhn MD) 39 weeks gestation of (Acute) Arrest of descent, delivered, current hospitalization (Acute) False labor after 37 completed weeks of gestation (Acute) Postop day 1 status post repeat section. Pain well controlled. Breast-feeding. Okay to discharge home today if okay with tub operator
[2020-11-11 08:45] VITALS: BP 103/54; PULSE 69; RESP 14; TEMP 36.8
[2020-11-11] MEDS: Senna/Docusate Sodium 1 Tablet PO (09:17)
[2020-11-11] MEDS: Ibuprofen 600 MG Tablet PO (09:17)
== END 2020-11-11 11:45 | disposition home or self-care (01) | DRG 788 ==
PROVIDERS: Admitting Provider Obstetrics & Gynecology; PCP Family Medicine; Referring Provider Obstetrics & Gynecology; Visit Provider Obstetrics & Gynecology
PROC: 10D00Z1 Extraction of Products of Conception, Low, Open Approach (ICD-10-PCS; CPT 59514; principal; 2020-11-10 07:15)
DX: O82 Encounter for cesarean delivery without indication (principal); Z3A.39 39 weeks gestation of pregnancy; Z37.0 Single live birth
CPT/HCPCS: 85025; 85027; 86850; 86900; 86901; 99218; J7120; A4216; G0378; J2405

== ENCOUNTER → 2021-07-20 10:48 | Outpatient (CLI) | payer OTHER, SELFPAY ==
--- NOTE | 2021-07-20 10:53 | US_ITS ---
STUDY: ULTRASOUND OF THE FEMALE PELVIS - COMPLETE REASON FOR EXAM: Female, 26 years old. PELVIC PAIN NO RECENT LMP FEBRUARY 2020 8 MO POST LMP: 03/03/2020 TECHNIQUE: Transabdominal and Transvaginal TECHNICAL QUALITY: Adequate. COMPARISON: None. FINDINGS: The uterus is anteverted and is in a midline position. The uterus measures 7.6 cm x 4.4 cm x 2.4 cm. Normal uterine cervix. The endometrium measures 7.1 mm in thickness, and is hyperechoic. There is no demonstrated endometrial mass. There is no demonstrated myometrial mass. I.U.D. - The patient does not have an I.U.D. The right ovary is visualized. The right ovary measures 2.5 cm x 1.7 cm x 1.6 cm. There is no right ovarian cyst or ovarian mass. There is no visualized right adnexal mass or complex lesion. There is normal arterial and normal venous vascularity. The left ovary is visualized. The left ovary measures 2.6 cm x 1.57 x 1.5 cm. There is no left ovarian cyst or ovarian mass. There is no visualized left adnexal mass or complex lesion. There is normal arterial and normal venous vascularity. There is no fluid in the cul-de-sac. The pre void volume of the bladder was 303 ml. US/Pelvic (Non ) IMPRESSION: Normal female pelvis. Electronically Signed: Dev Ervin MD at 13:00 EST , Service support ,
--- NOTE | 2021-07-20 10:54 | US_ITS ---
STUDY: ULTRASOUND OF THE FEMALE PELVIS - COMPLETE REASON FOR EXAM: Female, 26 years old. PELVIC PAIN NO RECENT LMP FEBRUARY 2020 8 MO POST LMP: 03/03/2020 TECHNIQUE: Transabdominal and Transvaginal TECHNICAL QUALITY: Adequate. COMPARISON: None. FINDINGS: The uterus is anteverted and is in a midline position. The uterus measures 7.6 cm x 4.4 cm x 2.4 cm. Normal uterine cervix. The endometrium measures 7.1 mm in thickness, and is hyperechoic. There is no demonstrated endometrial mass. There is no demonstrated myometrial mass. I.U.D. - The patient does not have an I.U.D. The right ovary is visualized. The right ovary measures 2.5 cm x 1.7 cm x 1.6 cm. There is no right ovarian cyst or ovarian mass. There is no visualized right adnexal mass or complex lesion. There is normal arterial and normal venous vascularity. The left ovary is visualized. The left ovary measures 2.6 cm x 1.57 x 1.5 cm. There is no left ovarian cyst or ovarian mass. There is no visualized left adnexal mass or complex lesion. There is normal arterial and normal venous vascularity. There is no fluid in the cul-de-sac. The pre void volume of the bladder was 303 ml. US/Transvaginal Non- IMPRESSION: Normal female pelvis. Electronically Signed: Dev Ervin MD at 13:00 EST , Service support ,
== END ==
PROVIDERS: PCP Family Medicine; Referring Provider Family Medicine; Visit Provider Family Medicine
DX: R10.2 Pelvic and perineal pain (principal)
CPT/HCPCS: 76830; 76856

== ENCOUNTER 2021-09-01 18:03 | Outpatient (CLI) | payer OTHER, SELFPAY | END 2021-09-01 23:59 | disposition short-term general hospital (02) | PROVIDERS: PCP Family Medicine; Visit Provider Family Medicine | DX: Z20.828 Contact with and (suspected) exposure to other viral communicable diseases (principal) | CPT/HCPCS: 87635; U0003; U0005 ==

== ENCOUNTER → 2021-12-25 | Outpatient (CLI) | payer OTHER, SELFPAY | END | disposition home or self-care (01) | LOC: LABSPEC 13:45 | PROVIDERS: PCP Family Medicine; Referring Provider Family Medicine; Visit Provider Family Medicine | DX: U07.1 COVID-19 (principal) | CPT/HCPCS: 87635; U0003; U0005 ==

== ENCOUNTER → 2024-10-01 | Outpatient (CLI) | payer OTHER, SELFPAY ==
--- NOTE | 2024-10-01 14:37 | BI_ITS ---
PROCEDURE: DIAG MAMM W/CAD, BILAT REASON FOR EXAM: F, Age 29 y/o, right breast pain. TECHNIQUE: Bilateral screening digital breast tomosynthesis with 2D and 3D images. Computer aided detection. COMPARISON: Baseline examination. FINDINGS: The breasts are heterogeneously dense which may obscure small masses. No suspicious masses, areas of developing architectural distortion, or suspicious calcifications. With the patient's history of right breast pain, targeted sonographic correlation recommended. BI/DIAG MAMM W/CAD, BILAT IMPRESSION: BI-RADS 0: INCOMPLETE - NEED ADDITIONAL IMAGING EVALUATION. Follow-up code: Targeted sonographic correlation recommended. The patient will be notified of the results by letter. Reading Location: [facility]
--- NOTE | 2024-10-01 14:37 | US_ITS ---
PROCEDURE: BREAST LIMITED UNILATERAL REASON FOR EXAM: Right breast pain. TECHNIQUE: Targeted ultrasound of the upper lateral aspect of the right breast was obtained. COMPARISON: Comparison is made with prior mammogram done earlier in the day. FINDINGS: RIGHT: Right breast ultrasound was targeted to the upper-outer quadrant.. The breast tissue appears sonographically normal. No cyst, solid mass, or suspicious shadowing. 3 benign-appearing lymph nodes are seen in the right axilla. The largest measures 1.9 cm x 1.3 cm x 0.9 cm. The breast tissue appears sonographically normal. No cyst, solid mass, or suspicious shadowing. US/Breast Limited Unilateral IMPRESSION: 3 benign-appearing lymph nodes are seen in the right axilla. Follow-up code: BI-RADS category 2. Reading Location: [id number]
== END | disposition home or self-care (01) ==
LOC: OPBI 14:29
PROVIDERS: PCP Family Medicine; Referring Provider Family Medicine; Visit Provider Family Medicine
DX: N64.4 Mastodynia (principal)
CPT/HCPCS: 76642; 77062; 77066; G0279